=== PATIENT | female | born 1935 | race Caucasian/White ===

== ENCOUNTER 2017-11-02 19:19 | Inpatient (IN) | payer MEDICARE, BC ==
[~2017-11-02] VITALS: Ht 172.7 cm; Wt 108.0 kg
[~2017-11-02 19:19] MED LIST: CITA-48 PO; DONE5TAB14 PO; GABA100C4 PO; LEVO75TA3 PO; NEXI20CA PO; NIFE1TAB86 PO; ONDA4; VITA400C28 PO
[2017-11-02 20:04] VITALS: BP 179/79; PULSE 62; RESP 17; TEMP 97.6; O2SAT 98
[2017-11-02] MEDS ORDERED: SODIUM CHLORIDE 0.9% FLUSH 10 ML FLUSH IV FLUSH PRN ×2 (20:15→22:15)
[2017-11-02 20:42] LABS: AUTOMATED NEUTROPHIL # 5.5 TH/MM3 (1.8-7.7); BASOPHIL % 0.2 % (0.0-2.0); EOSINOPHIL % 0.3 % (0.0-4.0); HEMATOCRIT 50.7 % (35.0-46.0); HEMO FLAGS DIFF FINAL; LYMPH % 12.2 % (9.0-44.0); LYMPHOCYTE # 0.8 TH/MM3 (1.0-4.8); MEAN CELL VOLUME 95.2 FL (80.0-100.0); MEAN CORPUSCULAR HEMOGLOBIN 32.3 PG (27.0-34.0); MEAN CORPUSCULAR HGB CONC 33.9 % (32.0-36.0); MONO % 6.8 % (0.0-8.0); NEUT % 80.5 % (16.0-70.0); PLATELET COUNT 198 TH/MM3 (150-450); RED BLOOD COUNT 5.33 MIL/MM3 (4.00-5.30); RED CELL DISTRIBUTION WIDTH 13.4 % (11.6-17.2); WHITE BLOOD COUNT 6.9 TH/MM3 (4.0-11.0)
[2017-11-02 20:43] VITALS: BP 149/73; PULSE 55; RESP 16; O2SAT 97
--- NOTE | 2017-11-02 20:43 | RADRPT ---
EXAM DATE/TIME: 11/02/2017 20:30 [facility] COMPARISON: CT BRAIN W/O CONTRAST, April 08, 2015, 16:25. INDICATIONS : Altered mental status. RADIATION DOSE: 35.52 CTDIvol (mGy) MEDICAL HISTORY : Hypertension. Diverticulitis. Hernia, hiatal. SURGICAL HISTORY : Hysterectomy. ENCOUNTER: Initial ACUITY: 1 day PAIN SCALE: 0/10 LOCATION: cranial TECHNIQUE: Multiple contiguous axial images were obtained of the head. Using automated exposure control and adj ustment of the mA and/or kV according to patient size, radiation dose was kept as low as reasonably a chievable to obtain optimal diagnostic quality images. DICOM format image data is available electro [facility] for review and comparison. FINDINGS: CEREBRUM: The ventricles are normal for age. No evidence of midline shift, mass lesion, hemorrhage or acute in farction. No extra-axial fluid collections are seen. Moderate to severe periventricular and subcorti kristy white matter small vessel ischemic changes are noted bilaterally. POSTERIOR FOSSA: The cerebellum and brainstem are intact. The 4th ventricle is midline. The cerebellopontine angle i s unremarkable. EXTRACRANIAL: The visualized portion of the orbits is intact. SKULL: The calvaria is intact. No evidence of skull fracture. CONCLUSION: 1. Moderate to severe periventricular and subcortical white matter small vessel ischemic changes bila terally. 2. No acute infarct, acute hemorrhage, mass effect or extra-axial fluid collections. Jonathan Castrejon MD on November 02, 2017 at 20:39 Board Certified Radiologist. This report was verified electronically.
[2017-11-02 20:47] LABS: BLOOD, URINE NEG (NEG); GLUCOSE,URINE NEG (NEG); HYALINE CAST, URINE 6 /lpf (RARE); KETONE, URINE NEG (NEG); NITRITE,URINE NEG (NEG); PH, URINE 6.5 (5.0-8.5); SQUAMOUS EPITHELIAL CELL URINE <1 /hpf (0-5); URINE COLOR LIGHT-YELLOW (YELLW/STRAW)
[2017-11-02 20:48] LABS: COMMENT (UR) CATH-CULT NOT IND; CULTURE IF INDICATED CATH CULTURE NOT IND
[2017-11-02 20:56] LABS: APTT (PATIENT) 26.1 SEC (24.3-30.1); INTERNATIONAL NORMALIZED RATIO 1.1 RATIO; PROTHROMBIN TIME - PATIENT 10.7 SEC (9.8-11.6)
--- NOTE | 2017-11-02 20:56 | PD ---
HPI Chief Complaint: Altered Mental Status Time Seen by Provider: 20:13 Travel History International Travel<30 days: No Contact w/Intl Traveler<30days: No Traveled to known affect area: No History of Present Illness HPI Patient is an 81-year-old female brought into the emergency department evaluation of altered mental status. Per EMS report patient's son went to her house today and she answered the door naked. He felt as if she was acting abnormally. She has not been physically seen by anyone in several days. He told EMS that he spoke with her on the phone 2 days ago and she sounded fine. Patient has no complaints today. She denies any recent falls, Injury, dysuria, chest pain, abdominal pain, shortness of breath. She has a history of hypertension, depression, memory loss and hypothyroidism. Son told EMS that he puts her medications in a pillbox but she often doesn't take them correctly. PFSH Past Medical History Anxiety: Yes Depression: Yes Cancer: No Dementia: Yes Diverticulitis: Yes Gastrointestinal Disorders: Yes (DIVERTICULITIS, ACID REFLUX) GERD: Yes Hiatal Hernia: Yes Hypertension: Yes Thyroid Disease: Yes ?: Not : 2 Para: 2 Past Surgical History Body Medical Devices: N/A Gynecologic Surgery: Yes (TOTAL VAGINAL HYSTERECTOMY) Hysterectomy: Yes Oral Surgery: Yes (TONSILLECTOMY) Tonsillectomy: Yes Other Surgery: Yes Social History Alcohol Use: Yes (ONCE A MONTH) Tobacco Use: No Substance Use: No Allergies-Medications (Allergen,Severity, Reaction): Coded Allergies: No Known Allergies (Verified , 04/08/15) Reported Meds & Prescriptions Reported Meds & Active Scripts Active Review of Systems ROS Limitations: Poor Historian Except as stated in HPI: all other systems reviewed are Neg Cardiovascular: No: Chest Pain or Discomfort Respiratory: No: Shortness of Breath Gastrointestinal: No: Abdominal Pain Neurologic: Positive: Other (memory loss), No: Focal Abnormalities, Change in Mentation, Slurred Speech Physical Exam Narrative GENERAL: Overweight, well-developed, alert elderly female. Resting comfortably in no acute distress. SKIN: Warm and dry. HEAD: Atraumatic. Normocephalic. EYES: Pupils equal and round. No scleral icterus. No injection or drainage. ENT: No nasal bleeding or discharge. Mucous membranes pink and moist. NECK: Trachea midline. No JVD. CARDIOVASCULAR: Regular rate and rhythm. 2/6 stop murmur. RESPIRATORY: No accessory muscle use. Clear to auscultation. Breath sounds equal bilaterally. GASTROINTESTINAL: Abdomen soft, non-tender, nondistended. Hepatic and splenic margins not palpable. MUSCULOSKELETAL: Extremities without clubbing, cyanosis, or edema. No obvious deformities. NEUROLOGICAL: Awake and alert. No obvious cranial nerve deficits. Motor grossly within normal limits. Five out of 5 muscle strength in the arms and legs. Normal speech. PSYCHIATRIC: Appropriate mood and affect; insight and judgment normal. Data Data Last Documented VS Vital Signs Date Time Temp Pulse Resp B/P (MAP) Pulse Ox O2 Delivery O2 Flow Rate FiO2 11/02/17 20:43 55 16 149/73 (98) 97 Room Air 11/02/17 20:04 97.6 Orders Orders Electrocardiogram (11/02/17 20:11) Complete Blood Count With Diff (11/02/17 20:11) Comprehensive Metabolic Panel (11/02/17 20:11) Creatine Kinase (Cpk) (11/02/17 20:11) Prothrombin Time / Inr (Pt) (11/02/17 20:11) Act Partial Throm Time (Ptt) (11/02/17 20:11) Thyroid Stimulating Hormone (11/02/17 20:11) Urinalysis - C+S If Indicated (11/02/17 20:11) Chest, Single Ap (11/02/17 20:11) Ct Brain W/O Iv Contrast(Rout) (11/02/17 20:11) Blood Glucose (11/02/17 20:11) Ecg Monitoring (11/02/17 20:11) Iv Access Insert/Monitor (11/02/17 20:11) Cath For Specimen (11/02/17 20:11) Oximetry (11/02/17 20:11) Sodium Chloride 0.9% Flush (Ns Flush) (11/02/17 20:15) Drug Screen, Random Urine (11/02/17 20:11) Alcohol (Ethanol) (11/02/17 20:11) Tylenol (Acetaminophen) (11/02/17 20:11) CKMB (11/02/17 20:15) CKMB% (11/02/17 20:15) Troponin I (11/02/17 21:47) Drug Screen, Random Urine (11/02/17 21:47) Salicylates (Aspirin) (11/02/17 21:47) Place In Observation (11/02/17 ) Vital Signs (Adult) Q2HX12,Q4H (11/02/17 22:12) Nih Stroke Scale - Nihss .Daily (11/02/17 22:12) Neuro Checks Q2HX12,Q4H (11/02/17 22:12) Notify Dr: Other (11/02/17 22:12) Remove Urinary Catheter .ONCE (11/02/17 22:12) Ot Request For Service (11/02/17 22:12) Pt Request For Service (11/02/17 22:12) Speech Therapy Consult-Eval/Tx (11/02/17 22:12) Case Management Consult (11/02/17 ) Activity Oob Ad Halima (11/02/17 22:12) Scd Bilateral/Knee High BAO.QSHIFT (11/02/17 22:12) Diet Npo (11/03/17 Breakfast) Hemoglobin (Hgb) A1c (11/02/17 22:12) Lipid Profile (11/03/17 06:00) Us Carotid Arteries Comp Bilat (11/02/17 ) Mra Brain W/O Contrast (Cow) (11/02/17 ) Mri Brain W/O Contrast (11/02/17 ) Echo 2d Comp With Doppler (11/02/17 ) ^ Hold Medication (11/02/17 22:12) Consult Neurology (11/02/17 ) Sodium Chloride 0.9% Flush (Ns Flush) (11/03/17 09:00) Sodium Chloride 0.9% Flush (Ns Flush) (11/02/17 22:15) Shine Worker / Telemetry BAO.Q8H (11/02/17 22:12) Consult Stroke Navigator (11/02/17 ) Eeg Study (11/02/17 ) Admit Order (Ed Use Only) (11/02/17 22:16) Labs Laboratory Tests Test 11/02/17 20:15 White Blood Count 6.9 TH/MM3 Red Blood Count 5.33 MIL/MM3 Hemoglobin 17.2 GM/DL Hematocrit 50.7 % Mean Corpuscular Volume 95.2 FL Mean Corpuscular Hemoglobin 32.3 PG Mean Corpuscular Hemoglobin Concent 33.9 % Red Cell Distribution Width 13.4 % Platelet Count 198 TH/MM3 Mean Platelet Volume 10.1 FL Neutrophils (%) (Auto) 80.5 % Lymphocytes (%) (Auto) 12.2 % Monocytes (%) (Auto) 6.8 % Eosinophils (%) (Auto) 0.3 % Basophils (%) (Auto) 0.2 % Neutrophils # (Auto) 5.5 TH/MM3 Lymphocytes # (Auto) 0.8 TH/MM3 Monocytes # (Auto) 0.5 TH/MM3 Eosinophils # (Auto) 0.0 TH/MM3 Basophils # (Auto) 0.0 TH/MM3 CBC Comment DIFF FINAL Differential Comment Prothrombin Time 10.7 SEC Prothromb Time International Ratio 1.1 RATIO Activated Partial Thromboplast Time 26.1 SEC Urine Color LIGHT-YELLOW Urine Turbidity CLEAR Urine pH 6.5 Urine Specific [place] 1.010 Urine Protein NEG mg/dL Urine Glucose (UA) NEG mg/dL Urine Ketones NEG mg/dL Urine Occult Blood NEG Urine Nitrite NEG Urine Bilirubin NEG Urine Urobilinogen LESS THAN 2.0 MG/DL Urine Leukocyte Esterase NEG Urine RBC 1 /hpf Urine WBC 1 /hpf Urine Squamous Epithelial Cells <1 /hpf Urine Amorphous Sediment RARE Urine Hyaline Casts 6 /lpf Microscopic Urinalysis Comment CATH-CULT NOT IND Blood Urea Nitrogen 14 MG/DL Creatinine 0.99 MG/DL Random Glucose 118 MG/DL Total Protein 7.0 GM/DL Albumin 3.6 GM/DL Calcium Level 7.9 MG/DL Alkaline Phosphatase 107 U/L Aspartate Amino Transf (AST/SGOT) 22 U/L Alanine Aminotransferase (ALT/SGPT) 22 U/L Total Bilirubin 0.8 MG/DL Sodium Level 137 MEQ/L Potassium Level 4.2 MEQ/L Chloride Level 103 MEQ/L Carbon Dioxide Level 23.6 MEQ/L Anion Gap 10 MEQ/L Estimat Glomerular Filtration Rate 54 ML/MIN Total Creatine Kinase 195 U/L Creatine Kinase MB 5.3 NG/ML Creatine Kinase MB % 2.7 % Thyroid Stimulating Hormone 3rd Gen 5.220 uIU/ML Urine Opiates Screen NEG Acetaminophen Level LESS THAN 2.0 MCG/ML Urine Barbiturates Screen NEG Urine Amphetamines Screen NEG Urine Benzodiazepines Screen NEG Urine Cocaine Screen NEG Urine Cannabinoids Screen NEG Ethyl Alcohol Level LESS THAN 3 MG/DL MDM Medical Decision Making Medical Screen Exam Complete: Yes Emergency Medical Condition: Yes Interpretation(s) Vital Signs Date Time Temp Pulse Resp B/P (MAP) Pulse Ox O2 Delivery O2 Flow Rate FiO2 11/02/17 20:43 55 16 149/73 (98) 97 Room Air 11/02/17 20:04 97.6 62 17 179/79 (112) 98 Differential Diagnosis CVA versus TIA versus UTI versus metabolic abnormality versus dementia versus other Narrative Course Patient is a 81-year-old female that presented to emergency department for evaluation of altered mental status. Initially EMS reported that she answered the door naked when her son arrived and he called 911 because of that behavior. Son is currently at bedside and stated that he was in the kitchen at her home , she walked out of her bedroom stated in the doorway and had a 20-30 minute episode of expressive aphasia and just appearing "out of it". And believes that she is not taking her medications appropriately. He states that at baseline she has some memory loss but is able to hold a conversation. CBC with no acute findings Chemistry with a calcium of 7.9, total CK at 195, CK-MB at 5.3 consistent with prior results. Troponin is still pending TSH is 5.2 Urinalysis is unremarkable Urine drug screen is pending Acetaminophen and alcohol level are unremarkable Chest x-ray which started by the radiologist shows bibasilar streakiness consistent with atelectasis and/or scarring. CT scan of the brain shows moderate to severe periventricular and subcortical white matter small vessel ischemic changes bilaterally. No acute infarct acute hemorrhage, mass effect or extra-axial fluid collections. HEPAS paged for admission due to what appears to be TIA symptoms. Discussed findings with Patient. Patient Is Agreeable to Stay. Diagnosis Primary Impression: TIA (transient ischemic attack) Qualified Codes: G45.9 - Transient cerebral ischemic attack, unspecified Additional Impressions: TSH elevation Noncompliance w/medication treatment due to intermit use of medication Bradycardia Admitting Information Admitting Physician Requests: Admit Condition: Stable Yuly Bhakta CASE ASSISTANT Nov 02, 2017 20:56
[2017-11-02 21:12] LABS: ANION GAP 10 MEQ/L (5-15)
[2017-11-02 21:24] LABS: ALKALINE PHOSPHATASE 107 U/L (45-117); ALT (GPT) 22 U/L (10-53); AST (GOT) 22 U/L (15-37); BICARBONATE 23.6 MEQ/L (21.0-32.0); BLOOD UREA NITROGEN 14 MG/DL (7-18); CHLORIDE 103 MEQ/L (98-107); CREATINE KINASE 195 U/L (26-192); GLOMERULAR FILTRATION RATE 54 ML/MIN (>89); POTASSIUM 4.2 MEQ/L (3.5-5.1); SODIUM (NA) 137 MEQ/L (136-145); TOTAL BILIRUBIN ADULT 0.8 MG/DL (0.2-1.0)
--- NOTE | 2017-11-02 21:24 | RADRPT ---
EXAM DATE/TIME: 11/02/2017 21:09 [facility] COMPARISON: CHEST SINGLE AP, April 18, 2016, 23:03. INDICATIONS : Altered mental status. MEDICAL HISTORY : Hypertension. Diverticulitis. Hernia, hiatal. SURGICAL HISTORY : Hysterectomy. ENCOUNTER: Initial ACUITY: 1 day PAIN SCORE: Non-responsive. LOCATION: Bilateral chest FINDINGS: Bibasilar streakiness is noted consistent with atelectasis and/or scarring. The heart is stable. The pulmonary vascular pattern is normal. No acute focal alveolar consolidation is noted. CONCLUSION: Bibasilar streakiness consistent with atelectasis and/or scarring. Jonathan Castrejon MD on November 02, 2017 at 21:21 Board Certified Radiologist. This report was verified electronically.
[2017-11-02 21:30] LABS: ACETAMINOPHEN LESS THAN 2.0 MCG/ML (10.0-30.0); ALCOHOL LESS THAN 3 MG/DL (0-5)
[2017-11-02 21:43] LABS: CKMB 5.3 NG/ML (0.5-3.6)
[2017-11-02] MEDS ORDERED: VITA1000 PO (22:44)
[2017-11-02] MEDS ORDERED: DONE5TAB7 PO (22:44)
[2017-11-02] MEDS ORDERED: NIFE20 PO (22:44)
[2017-11-02] MEDS ORDERED: LEVO88TA2 PO (22:44)
[2017-11-02] MEDS ORDERED: CITA40TA4 PO (22:44)
[2017-11-02 23:38] VITALS: BP 208/100; PULSE 53; RESP 18; O2SAT 97
--- NOTE | 2017-11-02 23:50 | HHI.HP ---
HPI Service [facility] Primary Care Physician Unknown Admission Diagnosis TIA Diagnoses: Travel History International Travel<30 Days: No Contact w/Intl Traveler <30 Da: No Traveled to Known Affected Are: No History of Present Illness pt stated son thought she was unsteady and called 911 per er, pt had trouble speaking when son came son came for grocery shopping no dizzness denies unsteadiness during the day,but stated she was unsteady "only when it happened" no falls no syncope denies other symptoms apart from little nausea face felt hot- for couple of weeks- no fever usually walks on her own, no walker no longer driving lives by herself, cooks for herself, does her own laundry son visits once a week Review of Systems Except as stated in HPI: all other systems reviewed are Neg Past Family Social History Past Medical History htn neuropathy has not been going to docs for past 1 yr- used to go to Dr Pagan hypothyroidism- per notes and meds- pt does not remember no dm/cad/chf/afib/lung problems/ liver or kidney problems/ cva/seizure/thyroid issues/cancer Past Surgical History cyst from breast hysterectomy tonsilectomy Allergies: Coded Allergies: No Known Allergies (Verified , 04/08/15) Family History parents were when she was3, and does not know about father- but he did not young mother of metastatic cancer- does not know what primary site - maybe lungs - in her 60s Social History used to smoke, quit 20yrs ago social drinker no drugs lives by herself, no longer driving Physical Exam Vital Signs Vital Signs Date Time Temp Pulse Resp B/P (MAP) Pulse Ox O2 Delivery O2 Flow Rate FiO2 11/02/17 20:43 55 16 149/73 (98) 97 Room Air 11/02/17 20:04 97.6 62 17 179/79 (112) 98 Physical Exam GENERAL: This is a well-nourished, well-developed patient, in no apparent distress. SKIN: No rashes, ecchymoses or lesions. Cool and dry. HEAD: Atraumatic. Normocephalic. No temporal or scalp tenderness. EYES: No scleral icterus. No injection or drainage. ENT: Nose without bleeding, purulent drainage or septal hematoma. Airway patent. NECK: Trachea midline. No JVD CARDIOVASCULAR: Regular rate and rhythm without murmurs, gallops, or rubs. RESPIRATORY: Clear to auscultation. Breath sounds equal bilaterally. No wheezes , rales, or rhonchi. GASTROINTESTINAL: Abdomen soft, non-tender, nondistended. . No guarding. MUSCULOSKELETAL: Extremities without clubbing, cyanosis. bilateral LE 1+ pitting edema up to mid calf. No calf tenderness. NEUROLOGICAL: Awake and alert. Motor and sensory grossly within normal limits. Normal speech. Laboratory Laboratory Tests Test 11/02/17 20:15 White Blood Count 6.9 Red Blood Count 5.33 Hemoglobin 17.2 Hematocrit 50.7 Mean Corpuscular Volume 95.2 Mean Corpuscular Hemoglobin 32.3 Mean Corpuscular Hemoglobin Concent 33.9 Red Cell Distribution Width 13.4 Platelet Count 198 Mean Platelet Volume 10.1 Neutrophils (%) (Auto) 80.5 Lymphocytes (%) (Auto) 12.2 Monocytes (%) (Auto) 6.8 Eosinophils (%) (Auto) 0.3 Basophils (%) (Auto) 0.2 Neutrophils # (Auto) 5.5 Lymphocytes # (Auto) 0.8 Monocytes # (Auto) 0.5 Eosinophils # (Auto) 0.0 Basophils # (Auto) 0.0 CBC Comment DIFF FINAL Differential Comment Prothrombin Time 10.7 Prothromb Time International Ratio 1.1 Activated Partial Thromboplast Time 26.1 Urine Color LIGHT-YELLOW Urine Turbidity CLEAR Urine pH 6.5 Urine Specific [place] 1.010 Urine Protein NEG Urine Glucose (UA) NEG Urine Ketones NEG Urine Occult Blood NEG Urine Nitrite NEG Urine Bilirubin NEG Urine Urobilinogen LESS THAN 2.0 Urine Leukocyte Esterase NEG Urine RBC 1 Urine WBC 1 Urine Squamous Epithelial Cells <1 Urine Amorphous Sediment RARE Urine Hyaline Casts 6 Microscopic Urinalysis Comment CATH-CULT NOT IND Blood Urea Nitrogen 14 Creatinine 0.99 Random Glucose 118 Total Protein 7.0 Albumin 3.6 Calcium Level 7.9 Alkaline Phosphatase 107 Aspartate Amino Transf (AST/SGOT) 22 Alanine Aminotransferase (ALT/SGPT) 22 Total Bilirubin 0.8 Sodium Level 137 Potassium Level 4.2 Chloride Level 103 Carbon Dioxide Level 23.6 Anion Gap 10 Estimat Glomerular Filtration Rate 54 Total Creatine Kinase 195 Creatine Kinase MB 5.3 Creatine Kinase MB % 2.7 Troponin I 0.02 Thyroid Stimulating Hormone 3rd Gen 5.220 Salicylates Level LESS THAN 1.7 Urine Opiates Screen NEG Acetaminophen Level LESS THAN 2.0 Urine Barbiturates Screen NEG Urine Amphetamines Screen NEG Urine Benzodiazepines Screen NEG Urine Cocaine Screen NEG Urine Cannabinoids Screen NEG Ethyl Alcohol Level LESS THAN 3 Result Diagram: 11/02/17201411/02/172014 Imaging Last [address] 11/02/172010 Signed Impressions: Service Date/Time: Thursday, November 02, 2017 20:30 - CONCLUSION: 1. Moderate to severe periventricular and subcortical white matter small vessel ischemic changes bilaterally. 2. No acute infarct, acute hemorrhage, mass effect or extra-axial fluid collections. Jonathan Castrejon MD Chest X-Ray 11/02/172010 Signed Impressions: Service Date/Time: Thursday, November 02, 2017 21:09 - CONCLUSION: Bibasilar streakiness consistent with atelectasis and/or scarring. Jonathan Castrejon MD Caprini VTE Risk Assessment Caprini VTE Risk Assessment: Mod/High Risk (score >= 2) Caprini Risk Assessment Model Point Value = 1 Point Value = 2 Point Value = 3 Point Value = 5 Age 41-60 Minor surgery BMI > 25 kg/m2 Swollen legs Varicose veins or History of unexplained or recurrent spontaneous Oral contraceptives or hormone replacement Sepsis (< 1 month) Serious lung disease, including pneumonia (< 1 month) Abnormal pulmonary function Acute myocardial infarction Congestive heart failure (< 1 month) History of inflammatory bowel disease Medical patient at bed rest Age 61-74 Arthroscopic surgery Major open surgery (> 45 min) Laparoscopic surgery (> 45 min) Malignancy Confined to bed (> 72 hours) Immobilizing plaster cast Central venous access Age >= 75 History of VTE Family history of VTE Factor V Leiden Prothrombin [id number] Lupus anticoagulant Anticardiolipin antibodies Elevated serum homocysteine Heparin-induced thrombocytopenia Other congenital or acquired thrombophilia Stroke (< 1 month) Elective arthroplasty Hip, pelvis, or leg fracture Acute spinal cord injury (< 1 month) Prophylaxis Regimen Total Risk Factor Score Risk Level Prophylaxis Regimen 0-1 Low Early ambulation 2 Moderate Order ONE of the following: *Sequential Compression Device (SCD) *Heparin 5000 units SQ BID 3-4 Higher Order ONE of the following medications: *Heparin 5000 units SQ TID *Enoxaparin/Lovenox 40 mg SQ daily (WT < 150 kg, CrCl > 30 mL/min) *Enoxaparin/Lovenox 30 mg SQ daily (WT < 150 kg, CrCl > 10-29 mL/min) *Enoxaparin/Lovenox 30 mg SQ BID (WT < 150 kg, CrCl > 30 mL/min) AND/OR *Sequential Compression Device (SCD) 5 or more Highest Order ONE of the following medications: *Heparin 5000 units SQ TID (Preferred with Epidurals) *Enoxaparin/Lovenox 40 mg SQ daily (WT < 150 kg, CrCl > 30 mL/min) *Enoxaparin/Lovenox 30 mg SQ daily (WT < 150 kg, CrCl > 10-29 mL/min) *Enoxaparin/Lovenox 30 mg SQ BID (WT < 150 kg, CrCl > 30 mL/min) AND *Sequential Compression Device (SCD) Assessment and Plan Assessment and Plan Impression: TIA vascular dementia HTN- uncontrolled on admission- 210/100s medication non compliance elevated TSH Plan: neuro checks permissive htn vasotec 2.5 Juan Alas MD Nov 02, 2017 23:50
[2017-11-03] VITALS (11 sets, daily range): BP systolic 134–200; BP diastolic 68–97; PULSE 59–84; RESP 16–20; TEMP 97.7–98.1; O2SAT 93–96
[2017-11-03] MEDS ORDERED: ENALAPRILAT 2.5 MG/2 ML VIAL IV PUSH PRN
[2017-11-03] MEDS: LEVOTHYROXINE SODIUM 88 MCG TAB PO SCH (06:00)
[2017-11-03 06:07] LABS: HDL CHOLESTEROL 48.2 MG/DL (40.0-60.0); LDL CHOLESTEROL 89 MG/DL (0-99)
--- NOTE | 2017-11-03 09:52 | RADRPT ---
EXAM DATE/TIME: 11/03/2017 08:45 [facility] COMPARISON: US CAROTID ARTERIES, April 20, 2016, 9:55. INDICATIONS : Transient ischemic attack. MEDICAL HISTORY : Hypothyroidism. Diverticulitis. Hernia, hiatal. Bilateral cataracts. Neuropathy. Dementia. HTN. GERD. Arthritis. Depression. Anxiety. SURGICAL HISTORY : Tonsillectomy. Total hysterectomy. ENCOUNTER: Initial ACUITY: 1 day PAIN SCORE: 0/10 LOCATION: Bilateral neck PEAK SYSTOLIC VELOCITIES (cm/sec): ICA/CCA RATIO: Right: 0.9 Left: 0.8 ICA: Right: 81 Left: 72 CCA: Right: 95 Left: 94 ECA: Right: 77 Left: 134 VERTEBRAL: Right: 65 antegrade Left: 46 antegrade Elevated flow velocities and ICA/CCA ratios have been found to correlate with increased degrees of vessel stenosis, calculated as percentage of diameter relative to a normal segment of distal ICA/CCA FINDINGS: RIGHT CAROTID: There is no evidence for a hemodynamically significant carotid stenosis. Minimal intimal hyperplasia is present with scattered calcific plaque. LEFT CAROTID: There is no evidence for a hemodynamically significant carotid stenosis. Minimal intimal hyperplasia is present with scattered calcific plaque. VERTEBRAL ARTERIES: Flow is antegrade in both vertebral arteries. MISCELLANEOUS: There are no ancillary masses or adenopathy. CONCLUSION: Negative examination for a hemodynamically significant carotid stenosis. . Julian Hawkins MD FACR on November 03, 2017 at 9:49 Board Certified Radiologist. This report was verified electronically.
[2017-11-03] MEDS ORDERED: DEXTROSE 50% IN WATER 50 ML VIAL(D50) IV PUSH PRN (11:30)
[2017-11-03] MEDS ORDERED: ATORVASTATIN 10 MG TAB PO ONE (11:30)
[2017-11-03] MEDS ORDERED: GLUCAGON 1 MG/ML VIAL OTHER PRN (11:30)
[2017-11-03] MEDS ORDERED: ASPIRIN EC 81 MG TABEC PO ONE (11:30)
[2017-11-03] MEDS: INSULIN ASPART SUPPLEMENTAL SCALE SQ SCH ×3 (12:00→20:47)
[2017-11-03 12:33] LABS: MAGNESIUM 1.9 MG/DL (1.5-2.5)
[2017-11-03 12:36] LABS: FREE T4 1.02 NG/DL (0.76-1.46)
--- NOTE | 2017-11-03 12:44 | MG ---
cc: KESHAWN TEJADA MD Lab No: Date: 11/03/2017 Age: 78 Sex: F Race: ___ DATE OF [address] Alas MEDICAL HISTORY 1. Altered mental status 2. History of hypertension 3. Depression 4. Memory loss 5. Hypothyroidism 6. Anxiety 7. Gastroesophageal reflux disease 8. Diverticulitis 9. Alcohol use 10. Arthritis 11. Dementia MEDICATIONS Vasotec DESCRIPTION The background activity is 8-9 Hz alpha located posteriorly superimposed by beta activity. Hyperventilation was omitted. Photic stimulation did not elicit a driving response. During the recording, there is muscle artifact. There were no electrographic seizures or epileptiform discharges noted. INTERPRETATION This is a normal awake EEG. Beta activity is a nonspecific finding that may be related to medication adverse effect like benzos or barbiturates. There are no electrographic seizures or epileptiform discharges. Clinical correlation is recommended. MD STEFAN Patrick/VER[place] /12:16 PM /12:29 PM MTDNhung
--- NOTE | 2017-11-03 12:53 | HHI.PR ---
Subjective Remarks pt stated son thought she was unsteady and called 911 per er, pt had trouble speaking when son came son came for grocery shopping no dizzness denies unsteadiness during the day,but stated she was unsteady "only when it happened" no falls no syncope denies other symptoms apart from little nausea face felt hot- for couple of weeks- no fever usually walks on her own, no walker no longer driving lives by herself, cooks for herself, does her own laundry son visits once a week 12-5 SEEN EARLIER, NO COMPLAINTS NOTED TO HAVE VASOVAGAL VS SYNCOPAL EPISODE IN MRI- RESOLVED AFTER FEW SECONDS WILL CONSULT CARDIOLOGY AND GET ECHO, CAROTIDS, MRI PT AND OT HAS HISTORY OF NONCOMPLIANCE Consult neurology Objective Vitals Vital Signs Date Time Temp Pulse Resp B/P (MAP) Pulse Ox O2 Delivery O2 Flow Rate FiO2 11/03/17 08:19 97.7 64 20 138/68 (91) 95 11/03/17 07:06 84 11/03/17 04:00 61 11/03/17 03:03 73 11/03/17 02:46 97.8 59 17 153/87 (109) 93 11/03/17 02:41 66 11/03/17 00:31 67 18 178/84 (115) 94 Room Air 11/03/17 00:28 64 16 196/96 (129) 95 Room Air 11/03/17 00:09 62 18 200/97 (131) 95 Room Air 11/02/17 23:38 53 18 208/100 (136) 97 Room Air 11/02/17 20:43 55 16 149/73 (98) 97 Room Air 11/02/17 20:04 97.6 62 17 179/79 (112) 98 Result Diagram: 11/02/17201411/02/172014 Other Results Laboratory Tests Test 11/02/17 20:15 11/03/17 04:39 White Blood Count 6.9 TH/MM3 Red Blood Count 5.33 MIL/MM3 Hemoglobin 17.2 GM/DL Hematocrit 50.7 % Mean Corpuscular Volume 95.2 FL Mean Corpuscular Hemoglobin 32.3 PG Mean Corpuscular Hemoglobin Concent 33.9 % Red Cell Distribution Width 13.4 % Platelet Count 198 TH/MM3 Mean Platelet Volume 10.1 FL Neutrophils (%) (Auto) 80.5 % Lymphocytes (%) (Auto) 12.2 % Monocytes (%) (Auto) 6.8 % Eosinophils (%) (Auto) 0.3 % Basophils (%) (Auto) 0.2 % Neutrophils # (Auto) 5.5 TH/MM3 Lymphocytes # (Auto) 0.8 TH/MM3 Monocytes # (Auto) 0.5 TH/MM3 Eosinophils # (Auto) 0.0 TH/MM3 Basophils # (Auto) 0.0 TH/MM3 CBC Comment DIFF FINAL Differential Comment Prothrombin Time 10.7 SEC Prothromb Time International Ratio 1.1 RATIO Activated Partial Thromboplast Time 26.1 SEC Urine Color LIGHT-YELLOW Urine Turbidity CLEAR Urine pH 6.5 Urine Specific Gerald 1.010 Urine Protein NEG mg/dL Urine Glucose (UA) NEG mg/dL Urine Ketones NEG mg/dL Urine Occult Blood NEG Urine Nitrite NEG Urine Bilirubin NEG Urine Urobilinogen LESS THAN 2.0 MG/DL Urine Leukocyte Esterase NEG Urine RBC 1 /hpf Urine WBC 1 /hpf Urine Squamous Epithelial Cells <1 /hpf Urine Amorphous Sediment RARE Urine Hyaline Casts 6 /lpf Microscopic Urinalysis Comment CATH-CULT NOT IND Blood Urea Nitrogen 14 MG/DL Creatinine 0.99 MG/DL Random Glucose 118 MG/DL Total Protein 7.0 GM/DL Albumin 3.6 GM/DL Calcium Level 7.9 MG/DL Alkaline Phosphatase 107 U/L Aspartate Amino Transf (AST/SGOT) 22 U/L Alanine Aminotransferase (ALT/SGPT) 22 U/L Total Bilirubin 0.8 MG/DL Sodium Level 137 MEQ/L Potassium Level 4.2 MEQ/L Chloride Level 103 MEQ/L Carbon Dioxide Level 23.6 MEQ/L Anion Gap 10 MEQ/L Estimat Glomerular Filtration Rate 54 ML/MIN Total Creatine Kinase 195 U/L Creatine Kinase MB 5.3 NG/ML Creatine Kinase MB % 2.7 % Troponin I 0.02 NG/ML Thyroid Stimulating Hormone 3rd Gen 5.220 uIU/ML Salicylates Level LESS THAN 1.7 MG/DL Urine Opiates Screen NEG Acetaminophen Level LESS THAN 2.0 MCG/ML Urine Barbiturates Screen NEG Urine Amphetamines Screen NEG Urine Benzodiazepines Screen NEG Urine Cocaine Screen NEG Urine Cannabinoids Screen NEG Ethyl Alcohol Level LESS THAN 3 MG/DL Phosphorus Level 3.2 MG/DL Magnesium Level 1.9 MG/DL Triglycerides Level 87 MG/DL Cholesterol Level 155 MG/DL LDL Cholesterol 89 MG/DL HDL Cholesterol 48.2 MG/DL Cholesterol/HDL Ratio 3.21 RATIO Free Thyroxine 1.02 NG/DL Imaging Last Impressions Carotid Artery Ultrasound 11/03/17 Signed Impressions: Service Date/Time: Friday, November 03, 2017 08:45 - CONCLUSION: Negative examination for a hemodynamically significant carotid stenosis. . Julian Hawkins MD FACR Head CT 11/02/172010 Signed Impressions: Service Date/Time: Thursday, November 02, 2017 20:30 - CONCLUSION: 1. Moderate to severe periventricular and subcortical white matter small vessel ischemic changes bilaterally. 2. No acute infarct, acute hemorrhage, mass effect or extra-axial fluid collections. Jonathan Castrejon MD Chest X-Ray 11/02/172010 Signed Impressions: Service Date/Time: Thursday, November 02, 2017 21:09 - CONCLUSION: Bibasilar streakiness consistent with atelectasis and/or scarring. Jonathan Castrejon MD Objective Remarks GENERAL: Alert oriented talkative and cooperative no current complaints SKIN: Warm and dry. HEAD: Atraumatic. Normocephalic. EYES: Pupils equal and round. No scleral icterus. No injection or drainage. Extraocular muscles intact ENT: No nasal bleeding or discharge. Mucous membranes pink and moist. Tongue is midline NECK: Trachea midline. No JVD. Supple CARDIOVASCULAR: Regular rate and rhythm. S1 and S2 no S3 or S4 RESPIRATORY: No accessory muscle use. Clear to auscultation. Breath sounds equal bilaterally. GASTROINTESTINAL: Abdomen soft, non-tender, nondistended. Hepatic and splenic margins not palpable. Obese MUSCULOSKELETAL: Extremities without clubbing, cyanosis, No obvious deformities. Bilateral lower extremity edema DRY skin bilateral lower extremities NEUROLOGICAL: Awake and alert. No obvious cranial nerve deficits. Motor grossly within normal limits. Five out of 5 muscle strength in the arms and legs. Normal speech. PSYCHIATRIC: Appropriate mood and affect; insight and judgment normal. Medications and IVs Current Medications Sodium Chloride (NS Flush) 2 ml UNSCH PRN IV FLUSH FLUSH AFTER USING IV ACCESS ; Start 11/02/17 at 20:15; Stop 11/02/17 at 22:18; Status DC Sodium Chloride (NS Flush) 2 ml BID IV FLUSH ; Start 11/03/17 at 09:00 Sodium Chloride (NS Flush) 2 ml UNSCH PRN IV FLUSH FLUSH AFTER USING IV ACCESS ; Start 11/02/17 at 22:15 Enalaprilat (Vasotec Inj) 2.5 mg Q6H PRN IV PUSH bp>200/100 Last administered on 11/03/17t 00:10; Start 11/03/17 at 00:00 Citalopram Hydrobromide (CeleXA) 40 mg DAILY PO ; Start 11/03/17 at 09:00 Donepezil HCl (Aricept) 5 mg HS PO ; Start 11/03/17 at 21:00 Levothyroxine Sodium (Synthroid) 88 mcg DAILY@0600 PO ; Start 11/03/17 at 06:00 Pneumococcal Polyvalent Vaccine (Pneumovax-23 Inj) 25 mcg ONCE ONCE IM ; Start 11/04/17 at 10:00; Stop 11/04/17 at 10:01 Influenza Virus Vaccine (Flu (Quadrivalent) Vaccine Inj) 0.5 ml ONCE ONCE IM ; Start 11/04/17 at 10:00; Stop 11/04/17 at 10:01 Dextrose (D50w (Vial) Inj) 50 ml UNSCH PRN IV PUSH HYPOGLYCEMIA-SEE COMMENTS; Start 11/03/17 at 11:30 Glucagon (Glucagon Inj) 1 mg UNSCH PRN OTHER HYPOGLYCEMIA-SEE COMMENTS; Start 11/03/17 at 11:30 Insulin Aspart (NovoLOG SUPPLEMENTAL SCALE) 1 ACHS SLIDING SCALE SQ ; Start at 12:00 Nifedipine (Procardia) 60 mg BID PO ; Start 11/03/17 at 21:00 Atorvastatin Calcium (Lipitor) 10 mg ONCE ONCE PO ; Start 11/03/17 at 11:30; Stop 11/03/17 at 11:31; Status DC Atorvastatin Calcium (Lipitor) 10 mg DAILY PO ; Start 11/04/17 at 09:00 Aspirin (Ecotrin Ec) 81 mg ONCE ONCE PO ; Start 11/03/17 at 11:30; Stop at 11:31; Status DC Aspirin (Ecotrin Ec) 81 mg DAILY PO ; Start 11/04/17 at 09:00 Urinary Catheter: No Vascular Central Line Catheter: No A/P Problem List: (1) Noncompliance w/medication treatment due to intermit use of medication ICD Code: Z91.14 - Patient's other noncompliance with medication regimen Status: Acute (2) Bradycardia ICD Code: R00.1 - Bradycardia, unspecified Status: Acute (3) TIA (transient ischemic attack) ICD Code: G45.9 - Transient cerebral ischemic attack, unspecified Status: Acute (4) Syncope ICD Code: R55 - Syncope and collapse Status: Acute (5) HTN (hypertension) ICD Code: I10 - Essential (primary) hypertension Status: Acute Assessment and Plan Impression: TIA in 2 new aspirin home medications vascular dementia HTN- uncontrolled on admission- 210/100s medication non compliance elevated TSH VASOvagal versus syncopal episode neurology has already been consult and will consult cardiology Plan: neuro checks permissive htn vasotec 2.5 Echo Carotids Neurology consult Cardiology consult due to vasovagal versus syncopal episode Discharge Planning Pending neurology and cardiology clearance Problem Qualifiers (1) TIA (transient ischemic attack): Qualified Codes: G45.9 - Transient cerebral ischemic attack, unspecified Julian Mclaughlin DO Nov 03, 2017 12:53
[2017-11-03] MEDS: CITALOPRAM HYDROBROMIDE 40 MG TAB PO SCH (13:41)
[2017-11-03] MEDS: SODIUM CHLORIDE 0.9% FLUSH 10 ML FLUSH IV FLUSH SCH ×2 (13:43→22:17)
--- NOTE | 2017-11-03 13:55 | RADRPT ---
EXAM DATE/TIME: 11/03/2017 12:48 [facility] COMPARISON: No previous studies available for comparison. INDICATIONS : Aphasia. MEDICAL HISTORY : Hypertension. SURGICAL HISTORY : Hysterectomy. Tonsillectomy. ENCOUNTER: Initial ACUITY: 2 day PAIN SCORE: 0/10 LOCATION: Head TECHNIQUE: Multiplanar, multisequence MRI of the brain was performed without contrast. FINDINGS: Moderate periventricular white matter changes are noted. There is mild atrophy. There is no restric yumiko diffusion. There is no parenchymal hemorrhage. Midline structures are intact. There no extra-a xial fluid collections appreciated. Posterior fossa is unremarkable CONCLUSION: Atrophy with marked periventricular white matter changes, negative for acute ischemic event. Julian Hawkins MD FACR on November 03, 2017 at 13:52 Board Certified Radiologist. This report was verified electronically.
--- NOTE | 2017-11-03 13:56 | RADRPT ---
EXAM DATE/TIME: 11/03/2017 12:48 [facility] COMPARISON: No previous studies available for comparison. INDICATIONS : Aphasia. MEDICAL HISTORY : Hypertension. SURGICAL HISTORY : Tonsillectomy. Hysterectomy. ENCOUNTER: Initial ACUITY: 1 day PAIN SCORE: 0/10 LOCATION: Head Please note a normal MRA of the brain does not entirely exclude the possibility of a small aneurysm, nor the possibility of distal intracranial vessel disease. TECHNIQUE: 3D time of flight MRA was performed. Source images, multiplanar STS MIP, and 3D volume MIP reconstru ctions were reviewed. FINDINGS: There is excellent visualization of the major intracranial arteries out to the second-order branch ve ssels. There is no evidence for aneurysm, vessel truncation or stenosis, and no evidence for vascula r malformation. CONCLUSION: Negative for major branch vessel occlusion or aneurysm. Julian Hawkins MD FACR on November 03, 2017 at 13:53 Board Certified Radiologist. This report was verified electronically.
--- NOTE | 2017-11-03 14:38 | EKG ---
Date Performed: 11/02/2017 Time Performed: 21:21:18 PTAGE: 81 years EKG: SINUS BRADYCARDIA WITH OCCASIONAL VENTRICULAR PREMATURE COMPLEXES POSSIBLE LEFT ATRIAL ENLA RGEMENT BORDERLINE ECG Compared to prior tracing no significant change PREVIOUS TRACING : 04/19/2016 15.02 DOCTOR: Landy Silva Interpretating Date/Time 11/03/2017 14:33:25
--- NOTE | 2017-11-03 15:31 | MB ---
cc: SHANI VILLALBA M.D. DATE OF CONSULTATION: 11/03/2017 REASON FOR CONSULTATION An 81-year-old woman seen in neurological consultation because of altered mentation. HISTORY OF PRESENT ILLNESS The patient was apparently found by her son confused. He came in as usual and she answered the door apparently naked. There was some history of unsteadiness and slurring. She lives alone and she does not drive. It appears that her son comes in every week and helps her with her groceries, etc. While having an MRI study she had some apparent bradycardia and may have blacked out very briefly. The MRI was reviewed. There is extensive microvascular disease. The MRA head was unremarkable as well as a carotid ultrasound. PAST MEDICAL HISTORY She has a history of neuropathy and hypertension and low thyroid. NEUROLOGICAL EXAMINATION On exam the patient was awake, alert, and she was actually oriented. She provided some history but unclear as to what happened to her situation and the reason for her coming to the hospital. Ocular movements and visual edwards were full. There is no facial weakness. She has good strength in all four limbs on the bedside exam and the reflexes were present but diminished throughout. Plantar responses were equivocal bilaterally. Other ancillary data reviewed. LABORATORY White count 6.9, hemoglobin 17.2, platelets 198. Basic chemistry normal except for glucose 118. CPK 195. LDL 89. Urinalysis negative. ASSESSMENT Acute encephalopathy, undetermined cause. Not typical TIA. No obvious metabolic issues to explain this. The patient is improved, perhaps very mildly disoriented or confused at this point. She is going to be observed. Her EEG was normal. PLAN/RECOMMENDATIONS I will follow the neurological course. Will check the B12 and some additional metabolic data. Thank you for asking us to assist in her care. I will follow her with you. MD MARICHUY Tucker/BT /2:10 PM /3:18 PM
--- NOTE | 2017-11-03 16:45 | ECHRPT ---
Indication: CVA/TIA CONCLUSIONS Technically difficult study. The left ventricular systolic function is normal with an estimated ejection fraction in the range of 55-60%. Trace mitral valve regurgitation. There is trace tricuspid valve regurgitation. There is a trivial pericardial effusion present. No hemodynamically significant echocardiographic features were observed (no pre-tamponade physiology). BP: 153 / 87 HR: 109 Rhythm: MEASUREMENTS (Male / Female) Normal Values Technical Quality:Technically difficult study 2D ECHO LV Diastolic Diameter PLAX 4.2 cm 4.2 - 5.9 / 3.9 - 5.3 cm LV Systolic Diameter PLAX 3.3 cm IVS Diastolic Thickness 1.3 cm 0.6 - 1.0 / 0.6 - 0.9 cm LVPW Diastolic Thickness 0.7 cm 0.6 - 1.0 / 0.6 - 0.9 cm LV Relative Wall Thickness 0.5 RV Internal Dim ED PLAX 1.8 cm LA Systolic Diameter LX 3.4 cm 3.0 - 4.0 / 2.7 - 3.8 cm DOPPLER Mitral E Point Velocity 96.3 cm/s Mitral A Point Velocity 93.3 cm/s Mitral E to A Ratio 1.0 TR Peak Velocity 140.0 cm/s TR Peak Gradient 7.8 mmHg FINDINGS LEFT VENTRICLE Normal left ventricular size. The left ventricular systolic function is normal with an estimated ejection fraction in the range of 55-60%. There is assymetric septal hypertrophy. RIGHT VENTRICLE Normal right ventricular size and systolic function. LEFT ATRIUM The left atrial size is normal. RIGHT ATRIUM The right atrial size is normal. ATRIAL SEPTUM Normal atrial septal thickness. AORTA The aortic root and proximal ascending aorta are normal in size on limited imaging. MITRAL VALVE Structurally normal mitral valve. No mitral valve stenosis. Trace mitral valve regurgitation. AORTIC VALVE Grossly normal aortic valve No aortic valve stenosis or regurgitation. TRICUSPID VALVE Structurally normal tricuspid valve. There is trace tricuspid valve regurgitation. No tricuspid valve stenosis. PULMONARY VALVE The pulmonary valve is not well visualized. VESSELS The inferior vena cava is normal in size. PERICARDIUM There is a trivial pericardial effusion present. No hemodynamically significant echocardiographic features were observed (no pre-tamponade physiology). Kyree James DO (Electronically Signed) Final Date:03 November 2017 16:44
[2017-11-03 17:04] LABS: HEMOGLOBIN A1b 1.9 %; HEMOGLOBIN Ao 84.9 %; HEMOGLOBIN LA1C 1.9 %; HEMOGLOBIN P3 3.8 %
--- NOTE | 2017-11-03 20:30 | MB ---
cc: KYREE GONZALEZ DO DATE OF CONSULTATION: 11/03/2017. REASON FOR CONSULTATION: Possible syncopal episode. HISTORY OF PRESENT ILLNESS: Eliz Kahn is a pleasant 81-year-old female who originally presented to the [facility] Emergency Room due to multiple neurological complaints. Apparently her son goes over to her house weekly to help her with groceries, and when her son got there she was unsteady and having trouble speaking for about 20 minutes. She had no falls or syncopal episodes at that time. She felt like she was somewhat nauseous but otherwise no chest pain or shortness of breath. Overall she is a difficult historian and does not remember much about the event. Apparently today she was undergoing an MRI and MRA and when they took her over to the holding area, the tech was getting ready and when he turned around, she started to slump over. He said that he saw that her head was kind of slumped over and started trying to talk to her but she would not answer. At this time, her eyes were open and staring down at the ground. He attempted to shake her and kind of woke her up and she finally came-to. At that time, he put a pulse oximeter on her finger and her pulse oximetry was around 88% and her heart rate was in the mid 60s. I was asked to see Ms. Kahn due to this episode which was concerning for possible vasovagal versus bradycardic-mediated syncope. Of note, the patient states that she sees Dr. Moore but she is unsure of the last time that she saw him. PAST MEDICAL HISTORY: 1. Hypertension. 2. Neuropathy. 3. Hypothyroidism. PAST SURGICAL HISTORY: 1. Cyst from breast removed. 2. Hysterectomy. 3. Tonsillectomy. ALLERGIES: NO KNOWN DRUG ALLERGIES. MEDICATIONS: 1. Donepezil 5 milligrams every night. 2. Nifedipine 60 milligrams twice a day. 3. Citalopram 40 milligrams a day. 4. Synthroid 88 micrograms daily. FAMILY HISTORY: Parents were when she was at a young age and she does not know much about her father. Her mother of metastatic cancer but does not know what the primary site was. SOCIAL HISTORY: The patient used to smoke but quit twenty years ago. She drinks socially. Denies drugs. Lives by herself with her son helping her. REVIEW OF SYSTEMS Fourteen systems were reviewed including osteopathic with pertinent positives and negatives as above; otherwise negative. PHYSICAL EXAMINATION: VITAL SIGNS: Temperature 98.1, heart rate 71, blood pressure 134/70, respirations 18, pulse ox 96% on room air. GENERAL: The patient appears well and in no acute distress, alert awake and oriented x3. HEAD, EYES, EARS, NOSE, THROAT: Extraocular muscles intact. Mucous membranes moist. NECK: The neck is supple. No JVD at 45 degrees. No carotid bruits heard bilaterally. Carotid upstroke is brisk in nature. HEART: Regular rate and rhythm. Positive first and second heart sounds with a 1/6 crescendo/decrescendo murmur to the right sternal border. LUNGS: Clear to auscultation bilaterally. No wheezes, rales or rhonchi. ABDOMEN: The abdomen is soft, nontender and nondistended. No organomegaly noted. EXTREMITIES: Trace edema bilaterally. NEUROLOGIC: No focal deficits. SKIN: Warm, dry and intact. OSTEOPATHIC: Osteopathically, mild lordosis, no kyphoscoliosis, or paraspinal tender points. LAB WORK: Hemoglobin 17.2, hematocrit 50.7, platelets 198,000. Potassium 4.2, BUN 14, creatinine 0.99. Troponin 0.02. ELECTROCARDIOGRAMS: Electrocardiogram (November 02, 2017 at 2121): Sinus bradycardia with rare PVC, possible left atrial enlargement, no acute S-T-T wave changes. IMPRESSIONS: 1. Possible neurological event with encephalopathy of unknown cause. 2. Mild bradycardia occasionally inflammatory. 3. Short run of PAC on telemetry. 4. History of hypertension. RECOMMENDATIONS: 1. Ms. Kahn presented originally with an encephalopathy episode from an unknown cause and will be further worked up from neurology. 2. I was asked to see her for possible event while waiting for her MRI, which does not sound cardiac in nature as she did not syncopize. Consideration should be made for a possible seizure versus further neurological events as apparently she was awake with her eyes open and a decreased pulse oximetry as well as a heart rate in the 60s. 3. A 2-D echocardiogram has been done and showed an ejection fraction of 55% to 60% with trace mitral and tricuspid regurgitation and a trivial pericardial effusion. 4. We will plan to watch her on telemetry and she did have some mild bradycardia with heart rates as low at 55 but no significant bradycardia or AV blocks to further explain her syncopal episode. She also had an asymptomatic 6-beat run of PAT. Upon discharge, she can follow up with Dr. Moore for further consideration of rhythm analysis to rule out further arrhythmias. 5. Further recommendations will be made based on the hospital course. Thank you for allowing me to see Eliz Kahn. If there are any questions, please do not hesitate to call. Kyree Gonzalez DO VGP/JCC /7:48 PM /8:08 PM
[2017-11-03] MEDS: DONEPEZIL HCL 5 MG TAB PO SCH (22:17)
[2017-11-03] MEDS: NIFEdipine 20 MG CAP PO SCH (22:18)
[2017-11-04] VITALS (8 sets, daily range): BP systolic 117–188; BP diastolic 59–95; PULSE 57–75; RESP 17–18; TEMP 97.5–98.3; O2SAT 92–95
[2017-11-04] MEDS: LEVOTHYROXINE SODIUM 88 MCG TAB PO SCH (04:12)
[2017-11-04 05:17] LABS: AUTOMATED NEUTROPHIL # 5.7 TH/MM3 (1.8-7.7); BASOPHIL % 0.4 % (0.0-2.0); EOSINOPHIL % 0.4 % (0.0-4.0); HEMATOCRIT 49.2 % (35.0-46.0); HEMO FLAGS DIFF FINAL; LYMPH % 20.4 % (9.0-44.0); LYMPHOCYTE # 1.7 TH/MM3 (1.0-4.8); MEAN CORPUSCULAR HEMOGLOBIN 32.3 PG (27.0-34.0); MONO % 8.8 % (0.0-8.0); PLATELET COUNT 194 TH/MM3 (150-450); RED BLOOD COUNT 5.18 MIL/MM3 (4.00-5.30); RED CELL DISTRIBUTION WIDTH 13.2 % (11.6-17.2); WHITE BLOOD COUNT 8.1 TH/MM3 (4.0-11.0)
[2017-11-04 05:47] LABS: ALT (GPT) 23 U/L (10-53); ANION GAP 7 MEQ/L (5-15); AST (GOT) 22 U/L (15-37); BICARBONATE 24.7 MEQ/L (21.0-32.0); BLOOD UREA NITROGEN 15 MG/DL (7-18); CHLORIDE 104 MEQ/L (98-107); GLOMERULAR FILTRATION RATE 69 ML/MIN (>89); MAGNESIUM 1.9 MG/DL (1.5-2.5); POTASSIUM 3.5 MEQ/L (3.5-5.1); SODIUM (NA) 136 MEQ/L (136-145)
[2017-11-04 05:50] LABS: ALKALINE PHOSPHATASE 99 U/L (45-117); TOTAL BILIRUBIN ADULT 1.1 MG/DL (0.2-1.0)
[2017-11-04] MEDS: INSULIN ASPART SUPPLEMENTAL SCALE SQ SCH ×4 (08:00→20:52)
[2017-11-04] MEDS: CITALOPRAM HYDROBROMIDE 40 MG TAB PO SCH (08:38)
[2017-11-04] MEDS: NIFEdipine 20 MG CAP PO SCH ×2 (08:38→20:52)
[2017-11-04] MEDS: ASPIRIN EC 81 MG TABEC PO SCH (08:38)
[2017-11-04] MEDS: ATORVASTATIN 10 MG TAB PO SCH (08:38)
[2017-11-04] MEDS: SODIUM CHLORIDE 0.9% FLUSH 10 ML FLUSH IV FLUSH SCH ×2 (08:39→20:52)
--- NOTE | 2017-11-04 09:01 | HHI.PR ---
Review/Management Daily Summary 11/04 no recurrence of confusion alert and pleasant this am spoke to RN possible dementia with resolved confusion may need closer outpt supervision office f/u in 2 weeks Subjective Subjective Comments No acute neuro events reported No headache Active Medications Current Medications Medications (Trade) Dose Ordered Sig/Paresh Route Start Time Stop Time Status Last Admin (NS Flush) 2 ml BID IV FLUSH 11/03/17 09:00 11/04/17 08:39 (NS Flush) 2 ml UNSCH PRN IV FLUSH 11/02/17 22:15 (Vasotec Inj) 2.5 mg Q6H PRN IV PUSH 11/03/17 00:00 11/03/17 00:10 (CeleXA) 40 mg DAILY PO 11/03/17 09:00 11/04/17 08:38 (Aricept) 5 mg HS PO 11/03/17 21:00 11/03/17 22:17 (Synthroid) 88 mcg DAILY@0600 PO 11/03/17 06:00 11/04/17 04:12 (Pneumovax-23 Inj) 25 mcg ONCE ONCE IM 11/04/17 10:00 11/04/17 10:01 (Flu (Quadrivalent) Vaccine Inj) 0.5 ml ONCE ONCE IM 11/04/17 10:00 11/04/17 10:01 (D50w (Vial) Inj) 50 ml UNSCH PRN IV PUSH 11/03/17 11:30 (Glucagon Inj) 1 mg UNSCH PRN OTHER 11/03/17 11:30 (NovoLOG SUPPLEMENTAL SCALE) 1 ACHS SLIDING SCALE SQ 11/03/17 12:00 (Procardia) 60 mg BID PO 11/03/17 21:00 11/04/17 08:38 (Lipitor) 10 mg DAILY PO 11/04/17 09:00 11/04/17 08:38 (Ecotrin Ec) 81 mg DAILY PO 11/04/17 09:00 11/04/17 08:38 Allergies Allergies Coded Allergies No Known Allergies (Verified04/08/15) Exam I&O / VS Vital Signs Date Time Temp Pulse Resp B/P (MAP) Pulse Ox O2 Delivery O2 Flow Rate FiO2 11/04/17 07:31 98.0 72 18 183/84 (117) 93 11/04/17 07:03 74 11/04/17 04:09 97.5 75 17 188/95 (126) 95 11/04/17 00:19 97.6 57 17 143/67 (92) 92 11/03/17 20:13 98.1 61 17 169/87 (114) 94 11/03/17 16:05 98.1 71 18 134/70 (91) 96 Objective Radiology Results Last 48 hours Impressions Head Magnetic Resonance Angiography 11/03/17 Signed Impressions: Service Date/Time: Friday, November 03, 2017 12:48 - CONCLUSION: Negative for major branch vessel occlusion or aneurysm. Julian Hawkins MD FACR Carotid Artery Ultrasound 11/03/17 Signed Impressions: Service Date/Time: Friday, November 03, 2017 08:45 - CONCLUSION: Negative examination for a hemodynamically significant carotid stenosis. . Julian Hawkins MD FACR Brain MRI 11/03/17 Signed Impressions: Service Date/Time: Friday, November 03, 2017 12:48 - CONCLUSION: Atrophy with marked periventricular white matter changes, negative for acute ischemic event. Julian Hawkins MD FACR Head CT 11/02/172010 Signed Impressions: Service Date/Time: Thursday, November 02, 2017 20:30 - CONCLUSION: 1. Moderate to severe periventricular and subcortical white matter small vessel ischemic changes bilaterally. 2. No acute infarct, acute hemorrhage, mass effect or extra-axial fluid collections. Jonathan Castrejon MD Chest X-Ray 11/02/172010 Signed Impressions: Service Date/Time: Thursday, November 02, 2017 21:09 - CONCLUSION: Bibasilar streakiness consistent with atelectasis and/or scarring. Jonathan Castrejon MD Micro and Labs Laboratory Tests Test 11/03/17 17:05 11/04/17 04:06 White Blood Count 8.1 Red Blood Count 5.18 Hemoglobin 16.7 Hematocrit 49.2 Mean Corpuscular Volume 95.0 Mean Corpuscular Hemoglobin 32.3 Mean Corpuscular Hemoglobin Concent 34.0 Red Cell Distribution Width 13.2 Platelet Count 194 Mean Platelet Volume 10.9 Neutrophils (%) (Auto) 70.0 Lymphocytes (%) (Auto) 20.4 Monocytes (%) (Auto) 8.8 Eosinophils (%) (Auto) 0.4 Basophils (%) (Auto) 0.4 Neutrophils # (Auto) 5.7 Lymphocytes # (Auto) 1.7 Monocytes # (Auto) 0.7 Eosinophils # (Auto) 0.0 Basophils # (Auto) 0.0 CBC Comment DIFF FINAL Differential Comment Blood Urea Nitrogen 15 Creatinine 0.80 Random Glucose 93 Total Protein 6.6 Albumin 3.4 Calcium Level 8.3 Phosphorus Level 3.1 Magnesium Level 1.9 Alkaline Phosphatase 99 Aspartate Amino Transf (AST/SGOT) 22 Alanine Aminotransferase (ALT/SGPT) 23 Total Bilirubin 1.1 Sodium Level 136 Potassium Level 3.5 Chloride Level 104 Carbon Dioxide Level 24.7 Anion Gap 7 Estimat Glomerular Filtration Rate 69 Amauri Moulton MD Nov 04, 2017 09:01
[2017-11-04] MEDS ORDERED: INFLUENZA VIRUS VACCINE (QUADRIVALENT) 0.5 ML SYR IM ONE (10:00)
[2017-11-04] MEDS ORDERED: PNEUMOCOCCAL POLYVALENT INJ 25 MCG/0.5 ML SYR IM ONE (10:00)
--- NOTE | 2017-11-04 12:51 | PD.CARD.PN ---
Subjective Subjective Remarks No events overnight Frustrated with nursing due to multiple issues Telemetry showing most likely episodes of Afib Objective Medications Current Medications Medications (Trade) Dose Ordered Sig/Paresh Route Start Time Stop Time Status Last Admin (NS Flush) 2 ml BID IV FLUSH 11/03/17 09:00 11/04/17 08:39 (NS Flush) 2 ml UNSCH PRN IV FLUSH 11/02/17 22:15 (Vasotec Inj) 2.5 mg Q6H PRN IV PUSH 11/03/17 00:00 11/03/17 00:10 (CeleXA) 40 mg DAILY PO 11/03/17 09:00 11/04/17 08:38 (Aricept) 5 mg HS PO 11/03/17 21:00 11/03/17 22:17 (Synthroid) 88 mcg DAILY@0600 PO 11/03/17 06:00 11/04/17 04:12 (D50w (Vial) Inj) 50 ml UNSCH PRN IV PUSH 11/03/17 11:30 (Glucagon Inj) 1 mg UNSCH PRN OTHER 11/03/17 11:30 (NovoLOG SUPPLEMENTAL SCALE) 1 ACHS SLIDING SCALE SQ 11/03/17 12:00 (Procardia) 60 mg BID PO 11/03/17 21:00 11/04/17 08:38 (Lipitor) 10 mg DAILY PO 11/04/17 09:00 11/04/17 08:38 (Ecotrin Ec) 81 mg DAILY PO 11/04/17 09:00 11/04/17 08:38 Vital Signs / I&O Vital Signs Date Time Temp Pulse Resp B/P (MAP) Pulse Ox O2 Delivery O2 Flow Rate FiO2 11/04/17 11:36 64 11/04/17 11:29 97.7 72 18 117/59 (78) 94 11/04/17 07:31 98.0 72 18 183/84 (117) 93 11/04/17 07:03 74 11/04/17 04:09 97.5 75 17 188/95 (126) 95 11/04/17 00:19 97.6 57 17 143/67 (92) 92 11/03/17 20:13 98.1 61 17 169/87 (114) 94 11/03/17 16:05 98.1 71 18 134/70 (91) 96 Physical Exam GENERAL: NAD SKIN: Warm and dry. HEAD: Atraumatic. Normocephalic. EYES: Pupils equal and round. No scleral icterus. No injection or drainage. ENT: No nasal bleeding or discharge. Mucous membranes pink and moist. NECK: Trachea midline. No JVD. CARDIOVASCULAR: Regular rate and rhythm. 1/6 holosystolic murmur noted at the apex RESPIRATORY: No accessory muscle use. Clear to auscultation. Breath sounds equal bilaterally. GASTROINTESTINAL: Abdomen soft, non-tender, nondistended. Hepatic and splenic margins not palpable. MUSCULOSKELETAL: Extremities without clubbing, cyanosis. Trace edema bilaterally NEUROLOGICAL: Awake and alert. No obvious cranial nerve deficits. Motor grossly within normal limits. Five out of 5 muscle strength in the arms and legs. Normal speech. PSYCHIATRIC: Appropriate mood and affect; insight and judgment normal. Laboratory Laboratory Tests Test 11/03/17 17:05 11/04/17 04:06 Rapid Plasma Reagin NON-REACTIVE White Blood Count 8.1 TH/MM3 Red Blood Count 5.18 MIL/MM3 Hemoglobin 16.7 GM/DL Hematocrit 49.2 % Mean Corpuscular Volume 95.0 FL Mean Corpuscular Hemoglobin 32.3 PG Mean Corpuscular Hemoglobin Concent 34.0 % Red Cell Distribution Width 13.2 % Platelet Count 194 TH/MM3 Mean Platelet Volume 10.9 FL Neutrophils (%) (Auto) 70.0 % Lymphocytes (%) (Auto) 20.4 % Monocytes (%) (Auto) 8.8 % Eosinophils (%) (Auto) 0.4 % Basophils (%) (Auto) 0.4 % Neutrophils # (Auto) 5.7 TH/MM3 Lymphocytes # (Auto) 1.7 TH/MM3 Monocytes # (Auto) 0.7 TH/MM3 Eosinophils # (Auto) 0.0 TH/MM3 Basophils # (Auto) 0.0 TH/MM3 CBC Comment DIFF FINAL Differential Comment Blood Urea Nitrogen 15 MG/DL Creatinine 0.80 MG/DL Random Glucose 93 MG/DL Total Protein 6.6 GM/DL Albumin 3.4 GM/DL Calcium Level 8.3 MG/DL Phosphorus Level 3.1 MG/DL Magnesium Level 1.9 MG/DL Alkaline Phosphatase 99 U/L Aspartate Amino Transf (AST/SGOT) 22 U/L Alanine Aminotransferase (ALT/SGPT) 23 U/L Total Bilirubin 1.1 MG/DL Sodium Level 136 MEQ/L Potassium Level 3.5 MEQ/L Chloride Level 104 MEQ/L Carbon Dioxide Level 24.7 MEQ/L Anion Gap 7 MEQ/L Estimat Glomerular Filtration Rate 69 ML/MIN Assessment and Plan Problem List: (1) Confusion ICD Codes: R41.0 - Disorientation, unspecified (2) Bradycardia ICD Codes: R00.1 - Bradycardia, unspecified Status: Acute (3) HTN (hypertension) ICD Codes: I10 - Essential (primary) hypertension Status: Acute Assessment and Plan 1. Possible neurological event with encephalopathy of unknown cause. Event while waiting for MRI, not a syncopal event, would consider further neurologic cause 2. Mild bradycardia Appears asymptomatic 3. Short run of PAC on telemetry. 4. History of hypertension. 5. Afib overnight New diagnosis Would not place on anticoagulation at this time as patient is extremely unsteady on her feet Discussed benefits and risks with patient, she has concerns with falls and agrees to no anticoagulation If in the future she is more steady on her feet, then this should be reassessed 6. Follow up with Dr. Moore 7. EF 55-60%, trace MR/TR Kyree James DO Nov 04, 2017 12:51
--- NOTE | 2017-11-04 14:35 | HHI.PR ---
Subjective Remarks Follow up on patient with unsteadiness, confusion, ?vasovagal episode. Patient seen and examined. Patient complaining of upsetting interaction with an aide. She states she has been very upset since the incident and not thinking clearly, no appetite. She denies any weakness, numbness/tingling, dizziness, lightheadedness or vision changes. She denies any fever or chills. She denies any chest pain or dyspnea. She denies any nausea, vomiting or abdominal pain. She denies any urinary difficulties. She does not know when she had her last bowel movement. Objective Vitals Vital Signs Date Time Temp Pulse Resp B/P (MAP) Pulse Ox O2 Delivery O2 Flow Rate FiO2 11/04/17 11:36 64 11/04/17 11:29 97.7 72 18 117/59 (78) 94 11/04/17 07:31 98.0 72 18 183/84 (117) 93 11/04/17 07:03 74 11/04/17 04:09 97.5 75 17 188/95 (126) 95 11/04/17 00:19 97.6 57 17 143/67 (92) 92 11/03/17 20:13 98.1 61 17 169/87 (114) 94 11/03/17 16:05 98.1 71 18 134/70 (91) 96 Result Diagram: 11/04/17 0406 11/04/17 0406 Imaging Last Impressions Head Magnetic Resonance Angiography 11/03/17 0000 Signed Impressions: Service Date/Time: Friday, November 03, 2017 12:48 - CONCLUSION: Negative for major branch vessel occlusion or aneurysm. Julian Hawkins MD FACR Carotid Artery Ultrasound 11/03/17 0000 Signed Impressions: Service Date/Time: Friday, November 03, 2017 08:45 - CONCLUSION: Negative examination for a hemodynamically significant carotid stenosis. . Julian Hawkins MD FACR Brain MRI 11/03/17 Signed Impressions: Service Date/Time: Friday, November 03, 2017 12:48 - CONCLUSION: Atrophy with marked periventricular white matter changes, negative for acute ischemic event. Julian Hawkins MD FACR Head CT 11/02/172010 Signed Impressions: Service Date/Time: Thursday, November 02, 2017 20:30 - CONCLUSION: 1. Moderate to severe periventricular and subcortical white matter small vessel ischemic changes bilaterally. 2. No acute infarct, acute hemorrhage, mass effect or extra-axial fluid collections. Jonathan Castrejon MD Chest X-Ray 11/02/172010 Signed Impressions: Service Date/Time: Thursday, November 02, 2017 21:09 - CONCLUSION: Bibasilar streakiness consistent with atelectasis and/or scarring. Jonathan Castrejon MD Objective Remarks GENERAL: Well-nourished, well-developed patient in NAD. Awake and alert. Sitting up in hospital bed. SKIN: Warm and dry. No rash. HEAD: Normocephalic. Atraumatic. EYES: Pupils equal and round. No scleral icterus. No injection or drainage. ENT: No nasal bleeding or discharge. Mucous membranes pink and moist. NECK: Supple. Trachea midline. CARDIOVASCULAR: Regular rate and rhythm. S1, S2 noted. No murmur appreciated. RESPIRATORY: No accessory muscle use. Clear to auscultation. Breath sounds equal bilaterally. GASTROINTESTINAL: Abdomen soft, non-tender, nondistended. Normoactive bowel sounds x4. MUSCULOSKELETAL: No obvious deformities. Extremities without clubbing, cyanosis , or edema. NEUROLOGICAL: Awake and alert. No obvious cranial nerve deficits. Motor grossly within normal limits. 5/5 muscle strength in bilateral upper and lower extremities. Normal speech. PSYCHIATRIC: Appropriate mood and affect; insight and judgment normal. Medications and IVs Current Medications Medications (Trade) Dose Ordered Sig/Paresh Route Start Time Stop Time Status Last Admin (NS Flush) 2 ml BID IV FLUSH 11/03/17 09:00 11/04/17 08:39 (NS Flush) 2 ml UNSCH PRN IV FLUSH 11/02/17 22:15 (Vasotec Inj) 2.5 mg Q6H PRN IV PUSH 11/03/17 00:00 11/03/17 00:10 (CeleXA) 40 mg DAILY PO 11/03/17 09:00 11/04/17 08:38 (Aricept) 5 mg HS PO 11/03/17 21:00 11/03/17 22:17 (Synthroid) 88 mcg DAILY@0600 PO 11/03/17 06:00 11/04/17 04:12 (D50w (Vial) Inj) 50 ml UNSCH PRN IV PUSH 11/03/17 11:30 (Glucagon Inj) 1 mg UNSCH PRN OTHER 11/03/17 11:30 (NovoLOG SUPPLEMENTAL SCALE) 1 ACHS SLIDING SCALE SQ 11/03/17 12:00 (Procardia) 60 mg BID PO 11/03/17 21:00 11/04/17 08:38 (Lipitor) 10 mg DAILY PO 11/04/17 09:00 11/04/17 08:38 (Ecotrin Ec) 81 mg DAILY PO 11/04/17 09:00 11/04/17 08:38 (Dia-Colace) 1 tab BID PO 11/04/17 21:00 A/P Problem List: (1) Noncompliance w/medication treatment due to intermit use of medication ICD Code: Z91.14 - Patient's other noncompliance with medication regimen Status: Acute (2) Bradycardia ICD Code: R00.1 - Bradycardia, unspecified Status: Acute (3) TIA (transient ischemic attack) ICD Code: G45.9 - Transient cerebral ischemic attack, unspecified Status: Acute (4) Syncope ICD Code: R55 - Syncope and collapse Status: Acute (5) HTN (hypertension) ICD Code: I10 - Essential (primary) hypertension Status: Acute Assessment and Plan 81-year-old female admitted with unsteadiness, difficulty speaking, uncontrolled hypertension and medication noncompliance. TIA - Neurology following, appreciate assistance. - CT of the head moderate to severe periventricular and subcortical white matter small vessel ischemic changes, no e/o acute infarct or hemorrhage - Carotid ultrasound negative - MRA negative - MRI negative for acute ischemic event - RPR negative. B12 281. - Continue on statin therapy - ASA 81mg daily - Continue with PT/OT - PT is recommending inpatient rehabilitation. Case management consulted to assist with discharge planning. Near syncopal episode - Patient with episode while awaiting to get MRI in the holding area, patient slumped over staring off into the distance not responding. - Cardiology consulted, appreciate assistance. Telemetry showing likely episodes of A. fib. Discussed with Dr. James who recommends against starting anticoagulation at this time secondary to patient's unsteadiness. Recommended baby aspirin daily for now and will reassess in the future. Follow- up with Dr. Moore. - EEG done showing no seizure activity - Echo done and EF 55-60%, trace MR/TR Hypertension - uncontrolled at admission with history of medication noncompliance - Improved - Continue on Procardia 60 mg twice a day - Continue to monitor BP and adjust treatment accordingly Dementia - Continue on Aricept Hypothyroidism - continue on home dose of Synthroid - TSH within normal limits DVT prophylaxis - Lovenox Discussed with patient, nursing staff, Dr. James and Dr. Umaña Discharge Planning Case management assisting with discharge planning, Fabio evaluating for possible acceptance Problem Qualifiers (1) TIA (transient ischemic attack): Qualified Codes: G45.9 - Transient cerebral ischemic attack, unspecified Uzma Chaidez Nov 04, 2017 14:35
[2017-11-04] MEDS ORDERED: CYANOCOBALAMIN 1000 MCG/ML VIAL IM ONE (17:00)
[2017-11-04] MEDS: ENOXAPARIN SODIUM 40 MG/0.4 ML SYRINGE SQ SCH (18:18)
[2017-11-04] MEDS: DOCUSATE SODIUM 50 MG/SENNA 8.6 MG TAB PO SCH (20:52)
[2017-11-04] MEDS: DONEPEZIL HCL 5 MG TAB PO SCH (20:52)
[2017-11-05 00:02] VITALS: BP 118/58; PULSE 73; RESP 18; TEMP 98.1; O2SAT 92
[2017-11-05 03:34] VITALS: BP 132/86; PULSE 74; RESP 18; TEMP 97.9; O2SAT 93
[2017-11-05] MEDS: LEVOTHYROXINE SODIUM 88 MCG TAB PO SCH (05:03)
[2017-11-05] MEDS: INSULIN ASPART SUPPLEMENTAL SCALE SQ SCH ×4 (08:00→21:00)
[2017-11-05] MEDS: DOCUSATE SODIUM 50 MG/SENNA 8.6 MG TAB PO SCH ×2 (08:26→21:18)
[2017-11-05] MEDS: NIFEdipine 20 MG CAP PO SCH ×2 (08:26→21:18)
[2017-11-05] MEDS: CITALOPRAM HYDROBROMIDE 40 MG TAB PO SCH (08:27)
[2017-11-05] MEDS: ASPIRIN EC 81 MG TABEC PO SCH (08:27)
[2017-11-05] MEDS: CYANOCOBALAMIN 1,000 MCG TAB PO SCH (08:27)
[2017-11-05] MEDS: SODIUM CHLORIDE 0.9% FLUSH 10 ML FLUSH IV FLUSH SCH ×2 (08:27→21:18)
[2017-11-05] MEDS: ATORVASTATIN 10 MG TAB PO SCH (08:27)
[2017-11-05 08:32] VITALS: BP_SYST 123; BP_SYST 137; BP_SYST 164; BP_DIAS 78; BP_DIAS 83; BP_DIAS 88; PULSE 66; RESP 16; TEMP 98.4; O2SAT 95
[2017-11-05 12:04] VITALS: BP 121/77; PULSE 68; RESP 16; TEMP 97.4; O2SAT 95
--- NOTE | 2017-11-05 12:57 | HHI.PR ---
Subjective Remarks Follow up on patient with unsteadiness, confusion, ?vasovagal episode. Patient seen and examined. Patient denies any acute medical complaints at this time. She denies any fever or chills. Denies any chest pain or shortness of breath. Denies any nausea, vomiting or abdominal pain. Denies any urinary difficulties. Reports no bowel movement. Discussed with nursing staff, no acute issues noted. She is able to reach them the hospital but does not know which one. She knows that she is in the city of [facility]. She reported that the year was 1999. She did know that Farrukh was president. Objective Vitals Vital Signs Date Time Temp Pulse Resp B/P (MAP) Pulse Ox O2 Delivery O2 Flow Rate FiO2 11/05/17 12:04 97.4 68 16 121/77 (92) 95 11/05/17 08:32 98.4 66 16 164/88 (113) 95 137/83 (101) 123/78 (93) 11/05/17 03:34 97.9 74 18 132/86 (101) 93 11/05/17 00:02 98.1 73 18 118/58 (78) 92 11/04/17 21:01 98.2 66 18 141/75 (97) 94 156/88 (110) 125/75 (92) 11/04/17 16:13 98.3 72 18 178/94 (122) 93 Result Diagram: 11/04/17 0406 11/04/17 0406 Imaging Last Impressions Head Magnetic Resonance Angiography 11/03/17 0000 Signed Impressions: Service Date/Time: Friday, November 03, 2017 12:48 - CONCLUSION: Negative for major branch vessel occlusion or aneurysm. Julian Hawkins MD FACR Carotid Artery Ultrasound 11/03/17 Signed Impressions: Service Date/Time: Friday, November 03, 2017 08:45 - CONCLUSION: Negative examination for a hemodynamically significant carotid stenosis. . Julian Hawkins MD FACR Brain MRI 11/03/17 Signed Impressions: Service Date/Time: Friday, November 03, 2017 12:48 - CONCLUSION: Atrophy with marked periventricular white matter changes, negative for acute ischemic event. Julian Hawkins MD FACR Head CT 11/02/172010 Signed Impressions: Service Date/Time: Thursday, November 02, 2017 20:30 - CONCLUSION: 1. Moderate to severe periventricular and subcortical white matter small vessel ischemic changes bilaterally. 2. No acute infarct, acute hemorrhage, mass effect or extra-axial fluid collections. Jonathan Castrejon MD Chest X-Ray 11/02/172010 Signed Impressions: Service Date/Time: Thursday, November 02, 2017 21:09 - CONCLUSION: Bibasilar streakiness consistent with atelectasis and/or scarring. Jonathan Castrejon MD Objective Remarks GENERAL: Well-nourished, well-developed patient in NAD. Awake and alert. Lying in hospital bed. Appears comfortable. SKIN: Warm and dry. No rash. HEAD: Normocephalic. Atraumatic. EYES: EOMI. No scleral icterus. No injection or drainage. ENT: No nasal bleeding or discharge. Mucous membranes pink and moist. NECK: Supple. Trachea midline. CARDIOVASCULAR: Regular rate and rhythm. S1, S2 noted. No murmur appreciated. RESPIRATORY: No accessory muscle use. Clear to auscultation. Breath sounds equal bilaterally. GASTROINTESTINAL: Abdomen soft, non-tender, nondistended. Normoactive bowel sounds x4. MUSCULOSKELETAL: No obvious deformities. Extremities without clubbing, cyanosis , or edema. NEUROLOGICAL: Awake and alert. No obvious cranial nerve deficits. Motor grossly within normal limits. 5/5 muscle strength in bilateral upper and lower extremities. Normal speech. Medications and IVs Current Medications Medications (Trade) Dose Ordered Sig/Paresh Route Start Time Stop Time Status Last Admin (NS Flush) 2 ml BID IV FLUSH 11/03/17 09:00 11/05/17 08:27 (NS Flush) 2 ml UNSCH PRN IV FLUSH 11/02/17 22:15 (Vasotec Inj) 2.5 mg Q6H PRN IV PUSH 11/03/17 00:00 11/03/17 00:10 (CeleXA) 40 mg DAILY PO 11/03/17 09:00 11/05/17 08:27 (Aricept) 5 mg HS PO 11/03/17 21:00 11/04/17 20:52 (Synthroid) 88 mcg DAILY@0600 PO 11/03/17 06:00 11/05/17 05:03 (D50w (Vial) Inj) 50 ml UNSCH PRN IV PUSH 11/03/17 11:30 (Glucagon Inj) 1 mg UNSCH PRN OTHER 11/03/17 11:30 (NovoLOG SUPPLEMENTAL SCALE) 1 ACHS SLIDING SCALE SQ 11/03/17 12:00 (Procardia) 60 mg BID PO 11/03/17 21:00 11/05/17 08:26 (Lipitor) 10 mg DAILY PO 11/04/17 09:00 11/05/17 08:27 (Ecotrin Ec) 81 mg DAILY PO 11/04/17 09:00 11/05/17 08:27 (Dia-Colace) 1 tab BID PO 11/04/17 21:00 11/05/17 08:26 (Lovenox Inj) 40 mg Q24H SQ 11/04/17 16:00 11/04/17 18:18 (Vitamin B12) 1,000 mcg DAILY PO 11/05/17 09:00 11/05/17 08:27 A/P Problem List: (1) Noncompliance w/medication treatment due to intermit use of medication ICD Code: Z91.14 - Patient's other noncompliance with medication regimen Status: Acute (2) Bradycardia ICD Code: R00.1 - Bradycardia, unspecified Status: Acute (3) TIA (transient ischemic attack) ICD Code: G45.9 - Transient cerebral ischemic attack, unspecified Status: Acute (4) Syncope ICD Code: R55 - Syncope and collapse Status: Acute (5) HTN (hypertension) ICD Code: I10 - Essential (primary) hypertension Status: Acute Assessment and Plan 81-year-old female admitted with unsteadiness, difficulty speaking, uncontrolled hypertension and medication noncompliance. TIA - Neurology following, appreciate assistance. - CT of the head moderate to severe periventricular and subcortical white matter small vessel ischemic changes, no e/o acute infarct or hemorrhage - Carotid ultrasound negative - MRA negative - MRI negative for acute ischemic event - RPR negative. B12 281, low end of normal. B12 1000mcg IM given. - Continue on statin therapy - ASA 81mg daily - Continue with PT/OT - PT is recommending inpatient rehabilitation. Case management consulted to assist with discharge planning. Near syncopal episode - Patient with episode while awaiting to get MRI in the holding area, patient slumped over staring off into the distance not responding. - Cardiology consulted, appreciate assistance. Telemetry showing likely episodes of A. fib. Discussed with Dr. James who recommends against starting anticoagulation at this time secondary to patient's unsteadiness. Recommended baby aspirin daily for now and will reassess in the future. Follow- up with Dr. Moore. - EEG done showing no seizure activity - Echo done and EF 55-60%, trace MR/TR - (+)orthostatics. Counseled patient on slow transitions with postural changes. LINDA hose upon standing. Hypertension - uncontrolled at admission with history of medication noncompliance - Improved - Continue on Procardia 60 mg twice a day - Continue to monitor BP and adjust treatment accordingly Dementia - Continue on Aricept - seen in consultation by ST pam arce, scored . THIS PATIENT IS CURRENTLY DEMONSTRATING DEFICITS OF ORIENTATION, MEMORY, PROBLEM SOLVING, AND VERBAL PROCESSING. - Patient is unsafe discharge as she lives alone at home. Case management assisting with discharge planning. Hypothyroidism - continue on home dose of Synthroid - TSH within normal limits DVT prophylaxis - patient is on Lovenox Discussed with patient, nursing staff, Dr. Umaña Discharge Planning Case management assisting with discharge planning, Fabio declined acceptance. She is an unsafe discharge, unable to return home alone. Problem Qualifiers (1) TIA (transient ischemic attack): Qualified Codes: G45.9 - Transient cerebral ischemic attack, unspecified Uzma Chaidez Nov 05, 2017 12:57
[2017-11-05 15:34] VITALS: BP 143/77; PULSE 80; RESP 16; TEMP 97.9; O2SAT 95
[2017-11-05] MEDS: ENOXAPARIN SODIUM 40 MG/0.4 ML SYRINGE SQ SCH (16:00)
[2017-11-05 20:30] VITALS: BP 138/73; PULSE 67; RESP 18; TEMP 97.9; O2SAT 94
[2017-11-05] MEDS: DONEPEZIL HCL 5 MG TAB PO SCH (21:18)
[2017-11-06] VITALS (12 sets, daily range): BP systolic 127–188; BP diastolic 56–90; PULSE 58–133; RESP 16–20; TEMP 97.3–98.8; O2SAT 93–97
[2017-11-06] MEDS: LEVOTHYROXINE SODIUM 88 MCG TAB PO SCH (05:30)
--- NOTE | 2017-11-06 07:51 | HHI.PR ---
Subjective Remarks Follow up on patient with unsteadiness, confusion, ?vasovagal episode. Patient seen and examined. Patient participated with physical therapy earlier today. Short time after, patient was found by FORMULA WEIGHER who had gone into the room to obtain routine vitals and found patient with eyes closed and unresponsive. Reportedly , patient was cold and clammy to the touch. Heart rate fluctuating in the 120s and down to the 70s. BP 127/57. O2 sat 94%. Blood sugar 143. Patient responded to sternal rub after a few minutes. (+)Urinary incontinence. No tongue biting. Patient has returned to baseline. She denies any recollection of the event. She denies any complaints of pain. She denies any lightheaded, dizziness, headache or vision changes. She denies any shortness of breath or chest pain. Denies any nausea, vomiting or abdominal pain. She is oriented. Objective Vitals Vital Signs Date Time Temp Pulse Resp B/P (MAP) Pulse Ox O2 Delivery O2 Flow Rate FiO2 11/06/17 07:17 98.0 70 20 185/77 (113) 96 11/06/17 03:30 97.9 60 18 148/78 (101) 94 11/06/17 00:21 97.5 70 18 164/70 (101) 93 11/05/17 20:30 97.9 67 18 138/73 (94) 94 11/05/17 15:34 97.9 80 16 143/77 (99) 95 11/05/17 12:04 97.4 68 16 121/77 (92) 95 11/05/17 08:32 98.4 66 16 164/88 (113) 95 137/83 (101) 123/78 (93) Result Diagram: 11/04/17 0406 11/04/17 0406 Imaging Last Impressions Head Magnetic Resonance Angiography 11/03/17 0000 Signed Impressions: Service Date/Time: Friday, November 03, 2017 12:48 - CONCLUSION: Negative for major branch vessel occlusion or aneurysm. Julian Hawkins MD FACR Carotid Artery Ultrasound 11/03/17 0000 Signed Impressions: Service Date/Time: Friday, November 03, 2017 08:45 - CONCLUSION: Negative examination for a hemodynamically significant carotid stenosis. . Julian Hawkins MD FACR Brain MRI 11/03/17 0000 Signed Impressions: Service Date/Time: Friday, November 03, 2017 12:48 - CONCLUSION: Atrophy with marked periventricular white matter changes, negative for acute ischemic event. Julian Hawkins MD FACR Head CT 11/02/172010 Signed Impressions: Service Date/Time: Thursday, November 02, 2017 20:30 - CONCLUSION: 1. Moderate to severe periventricular and subcortical white matter small vessel ischemic changes bilaterally. 2. No acute infarct, acute hemorrhage, mass effect or extra-axial fluid collections. Jonathan Castrejon MD Chest X-Ray 11/02/172010 Signed Impressions: Service Date/Time: Thursday, November 02, 2017 21:09 - CONCLUSION: Bibasilar streakiness consistent with atelectasis and/or scarring. Jonathan Castrejon MD Objective Remarks GENERAL: Well-nourished, well-developed patient in NAD. Awake and alert. Lying in hospital bed. Oriented. Able to follow commands. SKIN: Cool and dry. No rash. HEAD: Normocephalic. Atraumatic. EYES: PEERLA. EOMI. No scleral icterus. No injection or drainage. ENT: No nasal bleeding or discharge. Mucous membranes pink and moist. NECK: Supple. Trachea midline. CARDIOVASCULAR: Irregular. S1, S2 noted. No murmur appreciated. RESPIRATORY: Nonlabored. Clear to auscultation. Breath sounds equal bilaterally. GASTROINTESTINAL: Abdomen soft, non-tender, nondistended. Normoactive bowel sounds x4. MUSCULOSKELETAL: No obvious deformities. Extremities without clubbing, cyanosis , or edema. NEUROLOGICAL: Awake and alert. No obvious cranial nerve deficits. Motor and sensory exam grossly within normal limits. No focal neurologic findings appreciated. Normal speech. Medications and IVs Current Medications Medications (Trade) Dose Ordered Sig/Paresh Route Start Time Stop Time Status Last Admin (NS Flush) 2 ml BID IV FLUSH 11/03/17 09:00 11/05/17 21:18 (NS Flush) 2 ml UNSCH PRN IV FLUSH 11/02/17 22:15 (Vasotec Inj) 2.5 mg Q6H PRN IV PUSH 11/03/17 00:00 11/03/17 00:10 (CeleXA) 40 mg DAILY PO 11/03/17 09:00 11/05/17 08:27 (Aricept) 5 mg HS PO 11/03/17 21:00 11/05/17 21:18 (Synthroid) 88 mcg DAILY@0600 PO 11/03/17 06:00 11/06/17 05:30 (D50w (Vial) Inj) 50 ml UNSCH PRN IV PUSH 11/03/17 11:30 (Glucagon Inj) 1 mg UNSCH PRN OTHER 11/03/17 11:30 (NovoLOG SUPPLEMENTAL SCALE) 1 ACHS SLIDING SCALE SQ 11/03/17 12:00 (Procardia) 60 mg BID PO 11/03/17 21:00 11/05/17 21:18 (Lipitor) 10 mg DAILY PO 11/04/17 09:00 11/05/17 08:27 (Ecotrin Ec) 81 mg DAILY PO 11/04/17 09:00 11/05/17 08:27 (Dia-Colace) 1 tab BID PO 11/04/17 21:00 11/05/17 21:18 (Lovenox Inj) 40 mg Q24H SQ 11/04/17 16:00 11/05/17 16:00 (Vitamin B12) 1,000 mcg DAILY PO 11/05/17 09:00 11/05/17 08:27 A/P Problem List: (1) Noncompliance w/medication treatment due to intermit use of medication ICD Code: Z91.14 - Patient's other noncompliance with medication regimen Status: Acute (2) Bradycardia ICD Code: R00.1 - Bradycardia, unspecified Status: Acute (3) TIA (transient ischemic attack) ICD Code: G45.9 - Transient cerebral ischemic attack, unspecified Status: Acute (4) Syncope ICD Code: R55 - Syncope and collapse Status: Acute (5) HTN (hypertension) ICD Code: I10 - Essential (primary) hypertension Status: Acute Assessment and Plan 81-year-old female admitted with unsteadiness, difficulty speaking, uncontrolled hypertension and medication noncompliance. TIA - Neurology following, appreciate assistance. - CT of the head moderate to severe periventricular and subcortical white matter small vessel ischemic changes, no e/o acute infarct or hemorrhage - Carotid ultrasound negative - MRA negative - MRI negative for acute ischemic event - RPR negative. B12 281, low end of normal, B12 1000mcg given. - Continue on statin therapy - ASA 81mg daily - Continue with PT/OT - PT is recommending inpatient rehabilitation. Case management consulted to assist with discharge planning. Syncopal episode ?Seizure activity - Patient with episode while awaiting to get MRI in the holding area, patient slumped over staring off into the distance not responding. - Cardiology consulted, appreciate assistance. Telemetry showing likely episodes of A. fib. Discussed with Dr. James who recommends against starting anticoagulation at this time secondary to patient's unsteadiness. Recommended baby aspirin daily for now and will reassess in the future. Follow- up with Dr. Moore. - EEG done showing no seizure activity - Echo done and EF 55-60%, trace MR/TR - (+)orthostatics. Counseled patient on slow transitions with postural changes. LINDA hose upon standing. - 11/06 patient found unresponsive by FORMULA WEIGHER, fluctuating HR 120s to 70s, (+) urinary incontinence, did not bite tongue. Responded to sternal rub after several minutes. Patient with no recollection of events. No confusion following episode, oriented. Discussed with Dr. James. Reconsult Neurology. Obtain repeat EEG. Lab studies ordered. Hypertension - uncontrolled at admission with history of medication noncompliance - Improved - Continue on Procardia 60 mg twice a day - Continue to monitor BP and adjust treatment accordingly Dementia - Continue on Aricept - seen in consultation by ST pam arce, scored 16/30. THIS PATIENT IS CURRENTLY DEMONSTRATING DEFICITS OF ORIENTATION, MEMORY, PROBLEM SOLVING, AND VERBAL PROCESSING. - Patient is unsafe discharge as she lives alone at home. Case management assisting with discharge planning. Hypothyroidism - continue on home dose of Synthroid - TSH within normal limits DVT prophylaxis - patient is on Lovenox Discussed with patient, nursing staff, Dr. James, Dr. Umaña Discharge Planning Case management assisting with ongoing discharge planning, [facility] declined acceptance. Pending clinical course, EEG results and Neurology clearance. Problem Qualifiers (1) TIA (transient ischemic attack): Qualified Codes: G45.9 - Transient cerebral ischemic attack, unspecified Uzma Chaidez Nov 06, 2017 07:51
[2017-11-06] MEDS: INSULIN ASPART SUPPLEMENTAL SCALE SQ SCH ×4 (08:00→23:40)
[2017-11-06] MEDS: CYANOCOBALAMIN 1,000 MCG TAB PO SCH (09:13)
[2017-11-06] MEDS: NIFEdipine 20 MG CAP PO SCH ×2 (09:13→20:31)
[2017-11-06] MEDS: CITALOPRAM HYDROBROMIDE 40 MG TAB PO SCH (09:13)
[2017-11-06] MEDS: ASPIRIN EC 81 MG TABEC PO SCH (09:13)
[2017-11-06] MEDS: ATORVASTATIN 10 MG TAB PO SCH (09:14)
[2017-11-06] MEDS: SODIUM CHLORIDE 0.9% FLUSH 10 ML FLUSH IV FLUSH SCH ×2 (09:14→20:31)
[2017-11-06] MEDS: DOCUSATE SODIUM 50 MG/SENNA 8.6 MG TAB PO SCH ×2 (09:14→20:30)
[2017-11-06 13:20] LABS: BASOPHIL % 0.3 % (0.0-2.0); EOSINOPHIL % 0.4 % (0.0-4.0); HEMO FLAGS DIFF FINAL; LYMPH % 10.6 % (9.0-44.0); LYMPHOCYTE # 1.1 TH/MM3 (1.0-4.8); MEAN CELL VOLUME 95.2 FL (80.0-100.0); MEAN CORPUSCULAR HEMOGLOBIN 32.2 PG (27.0-34.0); MEAN CORPUSCULAR HGB CONC 33.9 % (32.0-36.0); MONO % 9.1 % (0.0-8.0); NEUT % 79.6 % (16.0-70.0); PLATELET COUNT 189 TH/MM3 (150-450); RED BLOOD COUNT 5.46 MIL/MM3 (4.00-5.30); RED CELL DISTRIBUTION WIDTH 13.2 % (11.6-17.2); WHITE BLOOD COUNT 10.1 TH/MM3 (4.0-11.0)
[2017-11-06 13:46] LABS: ALKALINE PHOSPHATASE 101 U/L (45-117); ALT (GPT) 25 U/L (10-53); ANION GAP 3 MEQ/L (5-15); AST (GOT) 29 U/L (15-37); BICARBONATE 28.9 MEQ/L (21.0-32.0); BLOOD UREA NITROGEN 15 MG/DL (7-18); CHLORIDE 101 MEQ/L (98-107); GLOMERULAR FILTRATION RATE 49 ML/MIN (>89); MAGNESIUM 2.1 MG/DL (1.5-2.5); SODIUM (NA) 133 MEQ/L (136-145); TOTAL BILIRUBIN ADULT 1.1 MG/DL (0.2-1.0)
[2017-11-06 13:47] LABS: POTASSIUM 5.2 MEQ/L (3.5-5.1)
--- NOTE | 2017-11-06 14:23 | PD.CARD.PN ---
Subjective Subjective Remarks Asked to see the patient again due to episode earlier in the day Apparently the patient was up walking with physical therapy. They sat her in bed. Nurse Aid came to do vitals and the patients head was slumped to the side and they could not wake her. She was incontinent of urine. Finally after a long sternal rub she awoke somewhat confused. During this her heart rates were stable without AV block or bradycardia, and blood pressure was around 125/60, 94 % O2 sat, and blood sugar 143. In seeing her post-event, she is now awake and alert with no complaints. She does not remember the event at all/ Objective Medications Current Medications Medications (Trade) Dose Ordered Sig/Paresh Route Start Time Stop Time Status Last Admin (NS Flush) 2 ml BID IV FLUSH 11/03/17 09:00 11/06/17 09:14 (NS Flush) 2 ml UNSCH PRN IV FLUSH 11/02/17 22:15 (Vasotec Inj) 2.5 mg Q6H PRN IV PUSH 11/03/17 00:00 11/03/17 00:10 (CeleXA) 40 mg DAILY PO 11/03/17 09:00 11/06/17 09:13 (Aricept) 5 mg HS PO 11/03/17 21:00 11/05/17 21:18 (Synthroid) 88 mcg DAILY@0600 PO 11/03/17 06:00 11/06/17 05:30 (D50w (Vial) Inj) 50 ml UNSCH PRN IV PUSH 11/03/17 11:30 (Glucagon Inj) 1 mg UNSCH PRN OTHER 11/03/17 11:30 (NovoLOG SUPPLEMENTAL SCALE) 1 ACHS SLIDING SCALE SQ 11/03/17 12:00 (Procardia) 60 mg BID PO 11/03/17 21:00 11/06/17 09:13 (Lipitor) 10 mg DAILY PO 11/04/17 09:00 11/06/17 09:14 (Ecotrin Ec) 81 mg DAILY PO 11/04/17 09:00 11/06/17 09:13 (Dia-Colace) 1 tab BID PO 11/04/17 21:00 11/06/17 09:14 (Lovenox Inj) 40 mg Q24H SQ 11/04/17 16:00 11/05/17 16:00 (Vitamin B12) 1,000 mcg DAILY PO 11/05/17 09:00 11/06/17 09:13 Vital Signs / I&O Vital Signs Date Time Temp Pulse Resp B/P (MAP) Pulse Ox O2 Delivery O2 Flow Rate FiO2 11/06/17 12:45 133 11/06/17 11:23 97.3 124 20 127/56 (79) 97 11/06/17 07:47 85 11/06/17 07:17 98.0 70 20 185/77 (113) 96 11/06/17 07:02 58 11/06/17 03:30 97.9 60 18 148/78 (101) 94 11/06/17 00:21 97.5 70 18 164/70 (101) 93 11/05/17 20:30 97.9 67 18 138/73 (94) 94 11/05/17 15:34 97.9 80 16 143/77 (99) 95 Physical Exam GENERAL: NAD SKIN: Warm and dry. HEAD: Atraumatic. Normocephalic. EYES: Pupils equal and round. No scleral icterus. No injection or drainage. ENT: No nasal bleeding or discharge. Mucous membranes pink and moist. NECK: Trachea midline. No JVD. CARDIOVASCULAR: Regular rate and rhythm. 1/6 holosystolic murmur noted at the apex RESPIRATORY: No accessory muscle use. Clear to auscultation. Breath sounds equal bilaterally. GASTROINTESTINAL: Abdomen soft, non-tender, nondistended. Hepatic and splenic margins not palpable. MUSCULOSKELETAL: Extremities without clubbing, cyanosis. Trace edema bilaterally NEUROLOGICAL: Awake and alert. No obvious cranial nerve deficits. Motor grossly within normal limits. Five out of 5 muscle strength in the arms and legs. Normal speech. PSYCHIATRIC: Appropriate mood and affect; insight and judgment normal. Laboratory Laboratory Tests Test 11/06/17 12:45 White Blood Count 10.1 TH/MM3 Red Blood Count 5.46 MIL/MM3 Hemoglobin 17.6 GM/DL Hematocrit 52.0 % Mean Corpuscular Volume 95.2 FL Mean Corpuscular Hemoglobin 32.2 PG Mean Corpuscular Hemoglobin Concent 33.9 % Red Cell Distribution Width 13.2 % Platelet Count 189 TH/MM3 Mean Platelet Volume 10.1 FL Neutrophils (%) (Auto) 79.6 % Lymphocytes (%) (Auto) 10.6 % Monocytes (%) (Auto) 9.1 % Eosinophils (%) (Auto) 0.4 % Basophils (%) (Auto) 0.3 % Neutrophils # (Auto) 8.0 TH/MM3 Lymphocytes # (Auto) 1.1 TH/MM3 Monocytes # (Auto) 0.9 TH/MM3 Eosinophils # (Auto) 0.0 TH/MM3 Basophils # (Auto) 0.0 TH/MM3 CBC Comment DIFF FINAL Differential Comment Blood Urea Nitrogen 15 MG/DL Creatinine 1.07 MG/DL Random Glucose 147 MG/DL Total Protein 6.8 GM/DL Albumin 3.2 GM/DL Calcium Level 8.7 MG/DL Phosphorus Level 3.1 MG/DL Magnesium Level 2.1 MG/DL Alkaline Phosphatase 101 U/L Aspartate Amino Transf (AST/SGOT) 29 U/L Alanine Aminotransferase (ALT/SGPT) 25 U/L Total Bilirubin 1.1 MG/DL Sodium Level 133 MEQ/L Potassium Level 5.2 MEQ/L Chloride Level 101 MEQ/L Carbon Dioxide Level 28.9 MEQ/L Anion Gap 3 MEQ/L Estimat Glomerular Filtration Rate 49 ML/MIN Lactic Acid Level 1.4 mmol/L Troponin I LESS THAN 0.02 NG/ML Assessment and Plan Problem List: (1) Confusion ICD Codes: R41.0 - Disorientation, unspecified (2) Bradycardia ICD Codes: R00.1 - Bradycardia, unspecified Status: Acute (3) HTN (hypertension) ICD Codes: I10 - Essential (primary) hypertension Status: Acute Assessment and Plan 1. Possible neurological event with encephalopathy of unknown cause. Event while waiting for MRI, not a syncopal event, would consider further neurologic cause 11/06/17 Second similar event, this time she was on a monitor with stable BP and no episodes of AV block or bradycardia, incontinent of urine.... agree with primary team discussing with neurology for a possible cause. 2. Mild bradycardia Appears asymptomatic 3. Short run of PAC on telemetry. 4. History of hypertension. 5. Afib New diagnosis Would not place on anticoagulation at this time as patient is extremely unsteady on her feet Discussed benefits and risks with patient, she has concerns with falls and agrees to no anticoagulation If in the future she is more steady on her feet, then this should be reassessed 6. Follow up with Dr. Moore 7. EF 55-60%, trace MR/TR 8. Will see PRN, call with questions Kyree James DO Nov 06, 2017 14:23
--- NOTE | 2017-11-06 17:10 | MG ---
cc: KESHAWN TEJADA MD Lab No: Date:11/06/2017 Age: Sex: F Race: DATE OF 1935 HISTORY: History of hypertension, depression, memory loss, hypothyroidism, anxiety, gastroesophageal reflux disease, diverticulitis alcohol use arthritis, dementia episodes of unresponsiveness with urinary, incontinence. MEDICATIONS 1. Lovenox. 1. Aspirin. 2. Aricept. 3. Procardia. 4. Celexa. 5. Synthroid. DESCRIPTION This is a follow up electroencephalogram. The background activity is 9-10 Hz alpha superimposed by excess beta activity. There is excessive movement artifact. Hyperventilation was omitted. Vesiculation did not elicit driving response. There were no electrographic seizures or epileptiform discharges noted. No electrographic seizures. There is some central sharp like activity noted. INTERPRETATION This is awake, drowsy EEG, there is sharp like activity in the central region that may be epileptogenic in nature. There is no ictal activity or electrographic seizures. Clinical correlation is recommended. MD STEFAN Patrick/eula /3:05 PM /5:01 PM MTDNhung
[2017-11-06] MEDS: ENOXAPARIN SODIUM 40 MG/0.4 ML SYRINGE SQ SCH (18:21)
[2017-11-06] MEDS: SODIUM CHLOR 0.9% 1000 ML INJ 1,000 ML IV SCH (19:22)
[2017-11-06] MEDS: DONEPEZIL HCL 5 MG TAB PO SCH (20:30)
[2017-11-07] VITALS (9 sets, daily range): BP systolic 135–183; BP diastolic 65–96; PULSE 63–98; RESP 16–19; TEMP 97–98.5; O2SAT 93–95
[2017-11-07] MEDS: LEVOTHYROXINE SODIUM 88 MCG TAB PO SCH (06:00)
[2017-11-07] MEDS: INSULIN ASPART SUPPLEMENTAL SCALE SQ SCH ×2 (08:00→12:00)
[2017-11-07] MEDS: SODIUM CHLORIDE 0.9% FLUSH 10 ML FLUSH IV FLUSH SCH ×2 (08:22→20:34)
[2017-11-07] MEDS: ASPIRIN EC 81 MG TABEC PO SCH (08:23)
[2017-11-07] MEDS: CITALOPRAM HYDROBROMIDE 40 MG TAB PO SCH (08:23)
[2017-11-07] MEDS: DOCUSATE SODIUM 50 MG/SENNA 8.6 MG TAB PO SCH ×2 (08:23→20:34)
[2017-11-07] MEDS: CYANOCOBALAMIN 1,000 MCG TAB PO SCH (08:23)
[2017-11-07] MEDS: NIFEdipine 20 MG CAP PO SCH ×2 (08:24→20:34)
[2017-11-07] MEDS: ATORVASTATIN 10 MG TAB PO SCH (08:24)
[2017-11-07 08:57] LABS: AUTOMATED NEUTROPHIL # 5.5 TH/MM3 (1.8-7.7); BASOPHIL # 0.1 TH/MM3 (0-0.2); BASOPHIL % 0.7 % (0.0-2.0); EOSINOPHIL % 0.5 % (0.0-4.0); HEMATOCRIT 52.1 % (35.0-46.0); HEMO FLAGS DIFF FINAL; LYMPH % 17.4 % (9.0-44.0); LYMPHOCYTE # 1.4 TH/MM3 (1.0-4.8); MEAN CELL VOLUME 94.5 FL (80.0-100.0); MEAN CORPUSCULAR HEMOGLOBIN 31.7 PG (27.0-34.0); MEAN CORPUSCULAR HGB CONC 33.5 % (32.0-36.0); NEUT % 70.4 % (16.0-70.0); PLATELET COUNT 191 TH/MM3 (150-450); RED BLOOD COUNT 5.51 MIL/MM3 (4.00-5.30); RED CELL DISTRIBUTION WIDTH 13.1 % (11.6-17.2); WHITE BLOOD COUNT 7.8 TH/MM3 (4.0-11.0)
[2017-11-07 09:22] LABS: BICARBONATE 22.5 MEQ/L (21.0-32.0); POTASSIUM 3.8 MEQ/L (3.5-5.1)
--- NOTE | 2017-11-07 10:01 | HHI.PR ---
Subjective Remarks in no acute distress. still feeling weak. d/w the RN and no acute issues over night. Objective Vitals Vital Signs Date Time Temp Pulse Resp B/P (MAP) Pulse Ox O2 Delivery O2 Flow Rate FiO2 11/07/17 09:20 64 11/07/17 08:00 98.1 67 18 183/94 (123) 94 11/07/17 06:45 97.0 63 18 140/69 (92) 93 11/07/17 04:08 98 11/07/17 00:46 68 11/07/17 00:40 98.1 65 19 135/65 (88) 93 11/06/17 22:30 98.8 62 17 139/71 (93) 93 11/06/17 19:47 98.2 80 16 188/83 (118) 96 11/06/17 19:11 98.2 67 20 185/90 (121) 96 11/06/17 19:08 62 11/06/17 16:00 97.6 65 18 141/80 (100) 97 11/06/17 12:45 133 11/06/17 11:23 97.3 124 20 127/56 (79) 97 I/O 11/06/17 11/06/17 11/06/17 11/07/17 11/07/17 11/07/17 06:59 14:59 22:59 06:59 14:59 22:59 Intake Total 400 ml 250 ml Output Total 100 ml Balance 400 ml 150 ml Intake Oral 400 ml 250 ml Output Urine Total 100 ml # Voids 6 6 # Bowel Movements 0 0 Result Diagram: 11/07/17 0750 11/07/17 0750 Imaging Last Impressions Head Magnetic Resonance Angiography 11/03/17 0000 Signed Impressions: Service Date/Time: Friday, November 03, 2017 12:48 - CONCLUSION: Negative for major branch vessel occlusion or aneurysm. Julian Hawkins MD FACR Carotid Artery Ultrasound 11/03/17 0000 Signed Impressions: Service Date/Time: Friday, November 03, 2017 08:45 - CONCLUSION: Negative examination for a hemodynamically significant carotid stenosis. . Julian Hawkins MD FACR Brain MRI 11/03/17 0000 Signed Impressions: Service Date/Time: Friday, November 03, 2017 12:48 - CONCLUSION: Atrophy with marked periventricular white matter changes, negative for acute ischemic event. Julian Hawkins MD FACR Head CT 11/02/172010 Signed Impressions: Service Date/Time: Thursday, November 02, 2017 20:30 - CONCLUSION: 1. Moderate to severe periventricular and subcortical white matter small vessel ischemic changes bilaterally. 2. No acute infarct, acute hemorrhage, mass effect or extra-axial fluid collections. Jonathan Castrejon MD Chest X-Ray 11/02/172010 Signed Impressions: Service Date/Time: Thursday, November 02, 2017 21:09 - CONCLUSION: Bibasilar streakiness consistent with atelectasis and/or scarring. Jonathan Castrejon MD Objective Remarks GENERAL: This is a well-nourished, well-developed patient, in no apparent distress. CARDIOVASCULAR: Regular rate and regular rhythm without murmurs, gallops, or rubs. RESPIRATORY: Clear to auscultation. Breath sounds equal bilaterally. No wheezes , rales, or rhonchi. GASTROINTESTINAL: Abdomen soft, non-tender, nondistended. Normal, active bowel sounds MUSCULOSKELETAL: Extremities without clubbing, cyanosis, or edema. NEURO: Alert & Oriented x4 to person, place, time, situation. Moves all ext x4 Medications and IVs Current Medications Sodium Chloride (NS Flush) 2 ml UNSCH PRN IV FLUSH FLUSH AFTER USING IV ACCESS ; Start 11/02/17 at 20:15; Stop 11/02/17 at 22:18; Status DC Sodium Chloride (NS Flush) 2 ml BID IV FLUSH Last administered on 11/06/17 09: 14; Start 11/03/17 at 09:00 Sodium Chloride (NS Flush) 2 ml UNSCH PRN IV FLUSH FLUSH AFTER USING IV ACCESS ; Start 11/02/17 at 22:15 Enalaprilat (Vasotec Inj) 2.5 mg Q6H PRN IV PUSH bp>200/100 Last administered on 11/03/17 00:10; Start 11/03/17 at 00:00 Citalopram Hydrobromide (CeleXA) 40 mg DAILY PO Last administered on 11/07/17 08:23; Start 11/03/17 at 09:00 Donepezil HCl (Aricept) 5 mg HS PO Last administered on 11/06/17 20:30; Start 11/03/17 at 21:00 Levothyroxine Sodium (Synthroid) 88 mcg DAILY@0600 PO Last administered on 11/07 06:00; Start 11/03/17 at 06:00 Pneumococcal Polyvalent Vaccine (Pneumovax-23 Inj) 25 mcg ONCE ONCE IM Last administered on 11/04/17 09:55; Start 11/04/17 at 10:00; Stop 11/04/17 at 10:01 ; Status DC Influenza Virus Vaccine (Flu (Quadrivalent) Vaccine Inj) 0.5 ml ONCE ONCE IM Last administered on 11/04/17 09:54; Start 11/04/17 at 10:00; Stop 11/04/17 at 10:01; Status DC Dextrose (D50w (Vial) Inj) 50 ml UNSCH PRN IV PUSH HYPOGLYCEMIA-SEE COMMENTS; Start 11/03/17 at 11:30 Glucagon (Glucagon Inj) 1 mg UNSCH PRN OTHER HYPOGLYCEMIA-SEE COMMENTS; Start 11/03/17 at 11:30 Insulin Aspart (NovoLOG SUPPLEMENTAL SCALE) 1 ACHS SLIDING SCALE SQ ; Start at 12:00 Nifedipine (Procardia) 60 mg BID PO Last administered on 11/07/17 08:24; Start 11/03/17 at 21:00 Atorvastatin Calcium (Lipitor) 10 mg ONCE ONCE PO Last administered on 13:42; Start 11/03/17 at 11:30; Stop 11/03/17 at 11:31; Status DC Atorvastatin Calcium (Lipitor) 10 mg DAILY PO Last administered on 11/07/17 08 :24; Start 11/04/17 at 09:00 Aspirin (Ecotrin Ec) 81 mg ONCE ONCE PO Last administered on 11/03/17 13:42; Start 11/03/17 at 11:30; Stop 11/03/17 at 11:31; Status DC Aspirin (Ecotrin Ec) 81 mg DAILY PO Last administered on 11/07/17 08:23; Start 11/04/17 at 09:00 Senna/Docusate Sodium (Dia-Colace) 1 tab BID PO Last administered on 08:23; Start 11/04/17 at 21:00 Enoxaparin Sodium (Lovenox Inj) 40 mg Q24H SQ Last administered on 11/06/17 18 :21; Start 11/04/17 at 16:00 Cyanocobalamin (Vitamin B12 Inj) 1,000 mcg ONCE ONCE IM Last administered on 11/04/17 18:18; Start 11/04/17 at 17:00; Stop 11/04/17 at 17:01; Status DC Cyanocobalamin (Vitamin B12) 1,000 mcg DAILY PO Last administered on 11/07/17 08:23; Start 11/05/17 at 09:00 Sodium Chloride 1,000 ml @ 42 mls/hr [id number] IV Last administered on 19:22; Start 11/06/17 at 18:00 A/P Problem List: (1) Noncompliance w/medication treatment due to intermit use of medication ICD Code: Z91.14 - Patient's other noncompliance with medication regimen Status: Acute (2) Bradycardia ICD Code: R00.1 - Bradycardia, unspecified Status: Acute (3) TIA (transient ischemic attack) ICD Code: G45.9 - Transient cerebral ischemic attack, unspecified Status: Acute (4) Syncope ICD Code: R55 - Syncope and collapse Status: Acute (5) HTN (hypertension) ICD Code: I10 - Essential (primary) hypertension Status: Acute Assessment and Plan TIA - Neurology following, appreciate assistance. - CT of the head moderate to severe periventricular and subcortical white matter small vessel ischemic changes, no e/o acute infarct or hemorrhage - Carotid ultrasound negative - MRA negative - MRI negative for acute ischemic event - RPR negative. B12 281, low end of normal, B12 1000mcg given. - Continue on statin therapy - ASA 81mg daily - Continue with PT/OT - PT is recommending inpatient rehabilitation. Case management consulted to assist with discharge planning. Syncopal episode ?Seizure activity - Patient with episode while awaiting to get MRI in the holding area, patient slumped over staring off into the distance not responding. - Cardiology consulted, appreciate assistance. Telemetry showing likely episodes of A. fib. previously Discussed with Dr. James who recommended against starting anticoagulation at this time secondary to patient's unsteadiness. Recommended baby aspirin daily for now and will reassess in the future. Follow-up with Dr. Moore. - Echo done and EF 55-60%, trace MR/TR - (+)orthostatics. Counseled patient on slow transitions with postural changes. LINDA funes upon standing. -initial EEG done showing no seizure activity -repeated EEG with possible seizure activity- - 11/06 patient found unresponsive by PREMIUM CANCELLATION CLERK, fluctuating HR 120s to 70s, (+) urinary incontinence, did not bite tongue. Responded to sternal rub after several minutes. Patient with no recollection of events. No confusion following episode, oriented. -neurology reconsulted. Hypertension - uncontrolled at admission with history of medication noncompliance - Improved - Continue on Procardia 60 mg twice a day - Continue to monitor BP and adjust treatment accordingly Dementia - Continue on Aricept - seen in consultation by ST pma arce, scored . THIS PATIENT IS CURRENTLY DEMONSTRATING DEFICITS OF ORIENTATION, MEMORY, PROBLEM SOLVING, AND VERBAL PROCESSING. - Patient is unsafe discharge as she lives alone at home. Case management assisting with discharge planning. Hypothyroidism - continue on home dose of Synthroid - TSH within normal limits DVT prophylaxis - patient is on Lovenox Discharge Planning awaiting neurology reevaluation- Problem Qualifiers (1) TIA (transient ischemic attack): Qualified Codes: G45.9 - Transient cerebral ischemic attack, unspecified Ghanshyam García MD Nov 07, 2017 10:01
[2017-11-07] MEDS: ENOXAPARIN SODIUM 40 MG/0.4 ML SYRINGE SQ SCH (16:28)
[2017-11-07] MEDS: SODIUM CHLOR 0.9% 1000 ML INJ 1,000 ML IV SCH (17:49)
[2017-11-07] MEDS: DONEPEZIL HCL 5 MG TAB PO SCH (20:34)
--- NOTE | 2017-11-07 21:27 | HHI.PR ---
Review/Management Diagnosis Dementia Encephalopathy Syncopal episode Positive orthostasis Plan - Neuro checks Q4h - Follow up EEG next am - No indication for AED at this time - Aricept 5mg nightly - Continue supportive medical therapy Diagnosis/Plan: Subjective Subjective Comments Requested to follow up for Dr. Moulton over the weekend Intermittent confusion at a base line cognitive decline/dementia EEG with some evidence of central sharp like activity Patient with no new complaints No family at bed side Active Medications Current Medications Medications (Trade) Dose Ordered Sig/Paresh Route Start Time Stop Time Status Last Admin (NS Flush) 2 ml BID IV FLUSH 11/03/17 09:00 11/07/17 20:34 (NS Flush) 2 ml UNSCH PRN IV FLUSH 11/02/17 22:15 (Vasotec Inj) 2.5 mg Q6H PRN IV PUSH 11/03/17 00:00 11/03/17 00:10 (CeleXA) 40 mg DAILY PO 11/03/17 09:00 11/07/17 08:23 (Aricept) 5 mg HS PO 11/03/17 21:00 11/07/17 20:34 (Synthroid) 88 mcg DAILY@0600 PO 11/03/17 06:00 11/07/17 06:00 (Procardia) 60 mg BID PO 11/03/17 21:00 11/07/17 20:34 (Lipitor) 10 mg DAILY PO 11/04/17 09:00 11/07/17 08:24 (Ecotrin Ec) 81 mg DAILY PO 11/04/17 09:00 11/07/17 08:23 (Dia-Colace) 1 tab BID PO 11/04/17 21:00 11/07/17 20:34 (Lovenox Inj) 40 mg Q24H SQ 11/04/17 16:00 11/07/17 16:28 (Vitamin B12) 1,000 mcg DAILY PO 11/05/17 09:00 11/07/17 08:23 Sodium Chloride 1,000 ml @ 42 mls/hr [id number] IV 11/06/17 18:00 11/06/17 19:22 Allergies Allergies Coded Allergies No Known Allergies (Verified04/08/15) Review of Systems All other ROS: ROS reviewed as documented in chart Exam I&O / VS 11/07/17 11/07/17 11/08/17 14:59 22:59 06:59 Intake Total 480 ml 150 ml Balance 480 ml 150 ml Intake Oral 480 ml IV Total 150 ml # Voids 5 # Bowel Movements 0 Vital Signs Date Time Temp Pulse Resp B/P (MAP) Pulse Ox O2 Delivery O2 Flow Rate FiO2 11/07/17 16:00 98.5 68 18 149/82 (104) 95 11/07/17 12:00 97.7 72 16 180/96 (124) 94 11/07/17 12:00 71 11/07/17 09:20 64 11/07/17 08:00 98.1 67 18 183/94 (123) 94 11/07/17 06:45 97.0 63 18 140/69 (92) 93 11/07/17 04:08 98 11/07/17 00:46 68 11/07/17 00:40 98.1 65 19 135/65 (88) 93 11/06/17 22:30 98.8 62 17 139/71 (93) 93 General: Alert and Oriented, No acute distress Eye: PERRL, Normal conjuctiva Respiratory: Non-labored respirations Cardiology: Normal rate, No murmur Neurologic: Alert, Normal motor, Normal DTR's, Other (oriented to person, place , not time, normal immediate recall, no dysphasia, mild b/l fine action tremor) Objective Micro and Labs Laboratory Tests Test 11/07/17 07:50 White Blood Count 7.8 Red Blood Count 5.51 Hemoglobin 17.5 Hematocrit 52.1 Mean Corpuscular Volume 94.5 Mean Corpuscular Hemoglobin 31.7 Mean Corpuscular Hemoglobin Concent 33.5 Red Cell Distribution Width 13.1 Platelet Count 191 Mean Platelet Volume 10.3 Neutrophils (%) (Auto) 70.4 Lymphocytes (%) (Auto) 17.4 Monocytes (%) (Auto) 11.0 Eosinophils (%) (Auto) 0.5 Basophils (%) (Auto) 0.7 Neutrophils # (Auto) 5.5 Lymphocytes # (Auto) 1.4 Monocytes # (Auto) 0.9 Eosinophils # (Auto) 0.0 Basophils # (Auto) 0.1 CBC Comment DIFF FINAL Differential Comment Blood Urea Nitrogen 12 Creatinine 0.73 Random Glucose 86 Calcium Level 8.1 Sodium Level 134 Potassium Level 3.8 Chloride Level 103 Carbon Dioxide Level 22.5 Anion Gap 9 Estimat Glomerular Filtration Rate 77 Tabitha Vickers MD Nov 07, 2017 21:27
[2017-11-08] VITALS (10 sets, daily range): BP systolic 132–179; BP diastolic 66–89; PULSE 61–89; RESP 18; TEMP 96.7–98.6; O2SAT 95–96
[2017-11-08] MEDS: LEVOTHYROXINE SODIUM 88 MCG TAB PO SCH (06:00)
[2017-11-08] MEDS: SODIUM CHLORIDE 0.9% FLUSH 10 ML FLUSH IV FLUSH SCH ×2 (08:44→20:54)
[2017-11-08] MEDS: ASPIRIN EC 81 MG TABEC PO SCH (08:46)
[2017-11-08] MEDS: CYANOCOBALAMIN 1,000 MCG TAB PO SCH (08:46)
[2017-11-08] MEDS: CITALOPRAM HYDROBROMIDE 40 MG TAB PO SCH (08:46)
[2017-11-08] MEDS: ATORVASTATIN 10 MG TAB PO SCH (08:46)
[2017-11-08] MEDS: NIFEdipine 20 MG CAP PO SCH ×2 (08:46→20:52)
[2017-11-08] MEDS: DOCUSATE SODIUM 50 MG/SENNA 8.6 MG TAB PO SCH ×2 (08:46→20:54)
--- NOTE | 2017-11-08 09:44 | HHI.PR ---
Subjective Remarks in no acute distress. denies pain. afebrile. Objective Vitals Vital Signs Date Time Temp Pulse Resp B/P (MAP) Pulse Ox O2 Delivery O2 Flow Rate FiO2 11/08/17 08:00 98.1 62 18 152/86 (108) 95 11/08/17 08:00 64 11/08/17 06:07 64 164/87 (112) 11/08/17 05:04 98.1 68 18 179/89 (119) 96 11/08/17 04:15 86 11/08/17 01:16 97.6 61 18 168/81 (110) 95 11/08/17 01:15 89 11/07/17 20:50 73 11/07/17 16:00 98.5 68 18 149/82 (104) 95 11/07/17 12:00 97.7 72 16 180/96 (124) 94 11/07/17 12:00 71 I/O 11/07/17 11/07/17 11/07/17 11/08/17 11/08/17 11/08/17 07:00 15:00 23:00 07:00 15:00 23:00 Intake Total 250 ml 480 ml 150 ml Output Total 100 ml Balance 150 ml 480 ml 150 ml Intake Oral 250 ml 480 ml IV Total 150 ml Output Urine Total 100 ml # Voids 6 5 2 # Bowel Movements 0 0 Result Diagram: 11/07/17 0750 11/07/17 0750 Imaging Last Impressions Head Magnetic Resonance Angiography 11/03/17 0000 Signed Impressions: Service Date/Time: Friday, November 03, 2017 12:48 - CONCLUSION: Negative for major branch vessel occlusion or aneurysm. Julian Hawkins MD FACR Carotid Artery Ultrasound 11/03/17 Signed Impressions: Service Date/Time: Friday, November 03, 2017 08:45 - CONCLUSION: Negative examination for a hemodynamically significant carotid stenosis. . Julian Hawkins MD FACR Brain MRI 11/03/17 Signed Impressions: Service Date/Time: Friday, November 03, 2017 12:48 - CONCLUSION: Atrophy with marked periventricular white matter changes, negative for acute ischemic event. Julian Hawkins MD FACR Head CT 11/02/172010 Signed Impressions: Service Date/Time: Thursday, November 02, 2017 20:30 - CONCLUSION: 1. Moderate to severe periventricular and subcortical white matter small vessel ischemic changes bilaterally. 2. No acute infarct, acute hemorrhage, mass effect or extra-axial fluid collections. Jonathan Castrejon MD Chest X-Ray 11/02/172010 Signed Impressions: Service Date/Time: Thursday, November 02, 2017 21:09 - CONCLUSION: Bibasilar streakiness consistent with atelectasis and/or scarring. Jonathan Castrejon MD Objective Remarks GENERAL: This is a well-nourished, well-developed patient, in no apparent distress. CARDIOVASCULAR: Regular rate and regular rhythm without murmurs, gallops, or rubs. RESPIRATORY: Clear to auscultation. Breath sounds equal bilaterally. No wheezes , rales, or rhonchi. GASTROINTESTINAL: Abdomen soft, non-tender, nondistended. Normal, active bowel sounds MUSCULOSKELETAL: Extremities without clubbing, cyanosis, or edema. NEURO: awake and alert. Medications and IVs Current Medications Sodium Chloride (NS Flush) 2 ml UNSCH PRN IV FLUSH FLUSH AFTER USING IV ACCESS ; Start 11/02/17 at 20:15; Stop 11/02/17 at 22:18; Status DC Sodium Chloride (NS Flush) 2 ml BID IV FLUSH Last administered on 11/07/17 20: 34; Start 11/03/17 at 09:00 Sodium Chloride (NS Flush) 2 ml UNSCH PRN IV FLUSH FLUSH AFTER USING IV ACCESS ; Start 11/02/17 at 22:15 Enalaprilat (Vasotec Inj) 2.5 mg Q6H PRN IV PUSH bp>200/100 Last administered on 11/03/17 00:10; Start 11/03/17 at 00:00 Citalopram Hydrobromide (CeleXA) 40 mg DAILY PO Last administered on 08:46; Start 11/03/17 at 09:00 Donepezil HCl (Aricept) 5 mg HS PO Last administered on 11/07/17 20:34; Start 11/03/17 at 21:00 Levothyroxine Sodium (Synthroid) 88 mcg DAILY@0600 PO Last administered on 06:00; Start 11/03/17 at 06:00 Pneumococcal Polyvalent Vaccine (Pneumovax-23 Inj) 25 mcg ONCE ONCE IM Last administered on 11/04/17 09:55; Start 11/04/17 at 10:00; Stop 11/04/17 at 10:01 ; Status DC Influenza Virus Vaccine (Flu (Quadrivalent) Vaccine Inj) 0.5 ml ONCE ONCE IM Last administered on 11/04/17 09:54; Start 11/04/17 at 10:00; Stop 11/04/17 at 10:01; Status DC Dextrose (D50w (Vial) Inj) 50 ml UNSCH PRN IV PUSH HYPOGLYCEMIA-SEE COMMENTS; Start 11/03/17 at 11:30; Stop 11/07/17 at 14:16; Status DC Glucagon (Glucagon Inj) 1 mg UNSCH PRN OTHER HYPOGLYCEMIA-SEE COMMENTS; Start 11/03/17 at 11:30; Stop 11/07/17 at 14:16; Status DC Insulin Aspart (NovoLOG SUPPLEMENTAL SCALE) 1 ACHS SLIDING SCALE SQ ; Start at 12:00; Stop 11/07/17 at 14:16; Status DC Nifedipine (Procardia) 60 mg BID PO Last administered on 11/08/17 08:46; Start 11/03/17 at 21:00 Atorvastatin Calcium (Lipitor) 10 mg ONCE ONCE PO Last administered on 13:42; Start 11/03/17 at 11:30; Stop 11/03/17 at 11:31; Status DC Atorvastatin Calcium (Lipitor) 10 mg DAILY PO Last administered on 11/08/17 08:46; Start 11/04/17 at 09:00 Aspirin (Ecotrin Ec) 81 mg ONCE ONCE PO Last administered on 11/03/17 13:42; Start 11/03/17 at 11:30; Stop 11/03/17 at 11:31; Status DC Aspirin (Ecotrin Ec) 81 mg DAILY PO Last administered on 11/08/17 08:46; Start 11/04/17 at 09:00 Senna/Docusate Sodium (Dia-Colace) 1 tab BID PO Last administered on 08:46; Start 11/04/17 at 21:00 Enoxaparin Sodium (Lovenox Inj) 40 mg Q24H SQ Last administered on 11/07/17 16 :28; Start 11/04/17 at 16:00 Cyanocobalamin (Vitamin B12 Inj) 1,000 mcg ONCE ONCE IM Last administered on 11/04/17 18:18; Start 11/04/17 at 17:00; Stop 11/04/17 at 17:01; Status DC Cyanocobalamin (Vitamin B12) 1,000 mcg DAILY PO Last administered on 08:46; Start 11/05/17 at 09:00 Sodium Chloride 1,000 ml @ 42 mls/hr [id number] IV Last administered on 19:22; Start 11/06/17 at 18:00 A/P Problem List: (1) Noncompliance w/medication treatment due to intermit use of medication ICD Code: Z91.14 - Patient's other noncompliance with medication regimen Status: Acute (2) Bradycardia ICD Code: R00.1 - Bradycardia, unspecified Status: Acute (3) TIA (transient ischemic attack) ICD Code: G45.9 - Transient cerebral ischemic attack, unspecified Status: Acute (4) Syncope ICD Code: R55 - Syncope and collapse Status: Acute (5) HTN (hypertension) ICD Code: I10 - Essential (primary) hypertension Status: Acute Assessment and Plan A/P TIA - Neurology following, appreciate assistance. - CT of the head moderate to severe periventricular and subcortical white matter small vessel ischemic changes, no e/o acute infarct or hemorrhage - Carotid ultrasound negative - MRA negative - MRI negative for acute ischemic event - RPR negative. B12 281, low end of normal, B12 1000mcg given. - Continue on statin therapy - ASA 81mg daily - Continue with PT/OT - PT is recommending inpatient rehabilitation. Case management consulted to assist with discharge planning. Syncopal episode ?Seizure activity - Patient with episode while awaiting to get MRI in the holding area, patient slumped over staring off into the distance not responding. - Cardiology consulted, appreciate assistance. Telemetry showing likely episodes of A. fib. previously Discussed with Dr. James who recommended against starting anticoagulation at this time secondary to patient's unsteadiness. Recommended baby aspirin daily for now and will reassess in the future. Follow-up with Dr. Moore. - Echo done and EF 55-60%, trace MR/TR - (+)orthostatics. Counseled patient on slow transitions with postural changes. LINDA funes upon standing. -initial EEG done showing no seizure activity -repeated EEG with possible seizure activity- - 11/06 patient found unresponsive by MANAGER ETL, fluctuating HR 120s to 70s, (+) urinary incontinence, did not bite tongue. Responded to sternal rub after several minutes. -neurology reconsulted; EEG to be repeated today; no antiepileptics at this time. -started on Aricept. Hypertension - uncontrolled at admission with history of medication noncompliance - overall Improved - Continue on Procardia 60 mg twice a day - Continue to monitor BP and adjust treatment accordingly Dementia - Continue on Aricept - seen in consultation by ST pam arce, scored 16/30. THIS PATIENT IS CURRENTLY DEMONSTRATING DEFICITS OF ORIENTATION, MEMORY, PROBLEM SOLVING, AND VERBAL PROCESSING. - Patient is unsafe discharge as she lives alone at home. Case management assisting with discharge planning. Hypothyroidism - continue on home dose of Synthroid - TSH within normal limits DVT prophylaxis - patient is on Lovenox Discharge Planning possible discharge early this week- pending repeated EEG and neurology follow-up / clearance. needs SNF placement. Problem Qualifiers (1) TIA (transient ischemic attack): Qualified Codes: G45.9 - Transient cerebral ischemic attack, unspecified Ghanshyam García MD Nov 08, 2017 09:44
--- NOTE | 2017-11-08 14:28 | HHI.PR ---
Review/Management Diagnosis Dementia Encephalopathy Syncopal episode Positive orthostasis Plan - Patient is stable - Neurologic exam is non focal - Neurologic investigation did not reveal an evidence of an acute neurologic abnormality - No indication for AED at this time - Aricept 5mg nightly - Continue supportive medical therapy - Patient need placement - Follow up with Dr. Moulton for an outpatient evaluation of cognitive decline/ dementia - Diagnosis/Plan: Subjective Subjective Comments No acute events reported Follow up EEG with no evidence of an ictal activity or epileptiform discharges Patient lays comfortable with no new complaints Covering neurologic consults for Dr. Moulton over the weekend Active Medications Current Medications Medications (Trade) Dose Ordered Sig/Paresh Route Start Time Stop Time Status Last Admin (NS Flush) 2 ml BID IV FLUSH 11/03/17 09:00 11/07/17 20:34 (NS Flush) 2 ml UNSCH PRN IV FLUSH 11/02/17 22:15 (Vasotec Inj) 2.5 mg Q6H PRN IV PUSH 11/03/17 00:00 11/03/17 00:10 (CeleXA) 40 mg DAILY PO 11/03/17 09:00 11/08/17 08:46 (Aricept) 5 mg HS PO 11/03/17 21:00 11/07/17 20:34 (Synthroid) 88 mcg DAILY@0600 PO 11/03/17 06:00 11/08/17 06:00 (Procardia) 60 mg BID PO 11/03/17 21:00 11/08/17 08:46 (Lipitor) 10 mg DAILY PO 11/04/17 09:00 11/08/17 08:46 (Ecotrin Ec) 81 mg DAILY PO 11/04/17 09:00 11/08/17 08:46 (Dia-Colace) 1 tab BID PO 11/04/17 21:00 11/08/17 08:46 (Lovenox Inj) 40 mg Q24H SQ 11/04/17 16:00 11/07/17 16:28 (Vitamin B12) 1,000 mcg DAILY PO 11/05/17 09:00 11/08/17 08:46 Sodium Chloride 1,000 ml @ 42 mls/hr [id number] IV 11/06/17 18:00 Future Hold 11/06/17 19:22 Allergies Allergies Coded Allergies No Known Allergies (Verified04/08/15) Review of Systems All other ROS: ROS reviewed as documented in chart Exam I&O / VS 11/08/17 11/08/17 11/09/17 15:00 23:00 07:00 Intake Total 100 ml Balance 100 ml IV Total 100 ml Vital Signs Date Time Temp Pulse Resp B/P (MAP) Pulse Ox O2 Delivery O2 Flow Rate FiO2 11/08/17 12:00 96.7 68 18 165/82 (109) 95 11/08/17 12:00 62 11/08/17 08:00 98.1 62 18 152/86 (108) 95 11/08/17 08:00 64 11/08/17 06:07 64 164/87 (112) 11/08/17 05:04 98.1 68 18 179/89 (119) 96 11/08/17 04:15 86 11/08/17 01:16 97.6 61 18 168/81 (110) 95 11/08/17 01:15 89 11/07/17 20:50 73 11/07/17 16:00 98.5 68 18 149/82 (104) 95 General: Alert and Oriented, No acute distress Eye: PERRL, Normal conjuctiva Respiratory: Non-labored respirations Cardiology: Normal rate, No murmur Neurologic: Alert, Normal motor, Normal DTR's, Other (oriented to person, place , not time, normal immediate recall, no dysphasia, mild b/l fine action tremor) Tabitha Vickers MD Nov 08, 2017 14:28
[2017-11-08] MEDS: ENOXAPARIN SODIUM 40 MG/0.4 ML SYRINGE SQ SCH (16:38)
[2017-11-08] MEDS: DONEPEZIL HCL 5 MG TAB PO SCH (20:52)
[2017-11-09 01:01] VITALS: BP 133/65; PULSE 60; RESP 18; TEMP 97.7; O2SAT 95
--- NOTE | 2017-11-09 05:23 | MG ---
cc: KESHAWN TEJADA Lab No: Date: 11/08/2017 Age: 81 Sex: F Race: DATE OF 1935 MEDICAL HISTORY 1. Episode of unresponsiveness with urinary incontinence. 2. History of hypertension. 3. Depression. 4. Memory loss. 5. Anxiety. 6. GERD. 7. Hypothyroidism. 8. Diverticulitis. 9. Alcohol use. 10. Arthritis. 11. Dementia. MEDICATIONS 1. Lipitor. 2. Aspirin. 3. Aricept. 4. Procardia. 5. Celexa. 6. Synthroid. NOTE This is a follow-up EEG to the EEG on 11/06/2017. The previous EEG revealed sharp-like activity in the central region that may be epileptogenic. DESCRIPTION The background activity is 8-9 Hz alpha located posteriorly with posterior to anterior gradient. There is excessive movement artifact. During the EEG recording the background the alpha rhythm was replaced by theta activity. During the recording the alpha rhythm was replaced by theta activity with transition to Stage II sleep with appearance of K-complexes and sleep spindles. Photic stimulation did not elicit a driving response. Hyperventilation was not done. There were no electrographic seizures or epileptiform discharges noted. INTERPRETATION This is a normal awake and sleep EEG. There was excessive, movement artifact. There were no electrographic seizures or epileptiform discharges noted during the recording. Clinical correlation is recommended. MD STEFAN Patrick/JC /9:26 PM /5:09 AM NIKI
[2017-11-09 05:30] VITALS: BP 143/82; PULSE 68; RESP 18; TEMP 97.3; O2SAT 96
[2017-11-09] MEDS: LEVOTHYROXINE SODIUM 88 MCG TAB PO SCH (05:40)
[2017-11-09 08:00] VITALS: BP 134/78; PULSE 57; PULSE 68; RESP 16; TEMP 97.4; O2SAT 96
[2017-11-09] MEDS: NIFEdipine 20 MG CAP PO SCH (08:09)
[2017-11-09] MEDS: CYANOCOBALAMIN 1,000 MCG TAB PO SCH (08:09)
[2017-11-09] MEDS: ASPIRIN EC 81 MG TABEC PO SCH (08:10)
[2017-11-09] MEDS: SODIUM CHLORIDE 0.9% FLUSH 10 ML FLUSH IV FLUSH SCH (08:10)
[2017-11-09] MEDS: ATORVASTATIN 10 MG TAB PO SCH (08:10)
[2017-11-09] MEDS: DOCUSATE SODIUM 50 MG/SENNA 8.6 MG TAB PO SCH (08:10)
[2017-11-09] MEDS: CITALOPRAM HYDROBROMIDE 40 MG TAB PO SCH (08:10)
--- NOTE | 2017-11-09 08:47 | HHI.PR ---
Subjective Remarks in no acute distress. resting comfortably. no new complaints. d/w the RN. Objective Vitals Vital Signs Date Time Temp Pulse Resp B/P (MAP) Pulse Ox O2 Delivery O2 Flow Rate FiO2 11/09/17 05:30 97.3 68 18 143/82 (102) 96 11/09/17 01:01 97.7 60 18 133/65 (87) 95 11/08/17 21:00 83 11/08/17 20:54 98.0 65 18 132/66 (88) 96 11/08/17 16:00 98.6 76 18 174/89 (117) 96 11/08/17 16:00 88 11/08/17 12:00 96.7 68 18 165/82 (109) 95 11/08/17 12:00 62 I/O 11/08/17 11/08/17 11/08/17 11/09/17 11/09/17 11/09/17 07:00 15:00 23:00 07:00 15:00 23:00 Intake Total 580 ml 100 ml Balance 580 ml 100 ml Intake Oral 480 ml IV Total 100 ml 100 ml # Voids 4 # Bowel Movements 1 Result Diagram: 11/07/17 0750 11/07/17 0750 Imaging Last Impressions Head Magnetic Resonance Angiography 11/03/17 0000 Signed Impressions: Service Date/Time: Friday, November 03, 2017 12:48 - CONCLUSION: Negative for major branch vessel occlusion or aneurysm. Julian Hawkins MD FACR Carotid Artery Ultrasound 11/03/17 0000 Signed Impressions: Service Date/Time: Friday, November 03, 2017 08:45 - CONCLUSION: Negative examination for a hemodynamically significant carotid stenosis. . Julian Hawkins MD FACR Brain MRI 11/03/17 0000 Signed Impressions: Service Date/Time: Friday, November 03, 2017 12:48 - CONCLUSION: Atrophy with marked periventricular white matter changes, negative for acute ischemic event. Julian Hawkins MD FACR Head CT 11/02/172010 Signed Impressions: Service Date/Time: Thursday, November 02, 2017 20:30 - CONCLUSION: 1. Moderate to severe periventricular and subcortical white matter small vessel ischemic changes bilaterally. 2. No acute infarct, acute hemorrhage, mass effect or extra-axial fluid collections. Jonathan Castrejon MD Chest X-Ray 11/02/172010 Signed Impressions: Service Date/Time: Thursday, November 02, 2017 21:09 - CONCLUSION: Bibasilar streakiness consistent with atelectasis and/or scarring. Jonathan Castrejon MD Objective Remarks GENERAL: This is a well-nourished, well-developed patient, in no apparent distress. CARDIOVASCULAR: Regular rate and regular rhythm without murmurs, gallops, or rubs. RESPIRATORY: Clear to auscultation. Breath sounds equal bilaterally. No wheezes , rales, or rhonchi. GASTROINTESTINAL: Abdomen soft, non-tender, nondistended. Normal, active bowel sounds MUSCULOSKELETAL: Extremities without clubbing, cyanosis, or edema. NEURO: awake and alert. Medications and IVs Current Medications Sodium Chloride (NS Flush) 2 ml UNSCH PRN IV FLUSH FLUSH AFTER USING IV ACCESS ; Start 11/02/17 at 20:15; Stop 11/02/17 at 22:18; Status DC Sodium Chloride (NS Flush) 2 ml BID IV FLUSH Last administered on 11/09/17 08 :10; Start 11/03/17 at 09:00 Sodium Chloride (NS Flush) 2 ml UNSCH PRN IV FLUSH FLUSH AFTER USING IV ACCESS ; Start 11/02/17 at 22:15 Enalaprilat (Vasotec Inj) 2.5 mg Q6H PRN IV PUSH bp>200/100 Last administered on 11/03/17 00:10; Start 11/03/17 at 00:00 Citalopram Hydrobromide (CeleXA) 40 mg DAILY PO Last administered on 08:10; Start 11/03/17 at 09:00 Donepezil HCl (Aricept) 5 mg HS PO Last administered on 11/08/17 20:52; Start 11/03/17 at 21:00 Levothyroxine Sodium (Synthroid) 88 mcg DAILY@0600 PO Last administered on 05:40; Start 11/03/17 at 06:00 Pneumococcal Polyvalent Vaccine (Pneumovax-23 Inj) 25 mcg ONCE ONCE IM Last administered on 11/04/17 09:55; Start 11/04/17 at 10:00; Stop 11/04/17 at 10:01 ; Status DC Influenza Virus Vaccine (Flu (Quadrivalent) Vaccine Inj) 0.5 ml ONCE ONCE IM Last administered on 11/04/17 09:54; Start 11/04/17 at 10:00; Stop 11/04/17 at 10:01; Status DC Dextrose (D50w (Vial) Inj) 50 ml UNSCH PRN IV PUSH HYPOGLYCEMIA-SEE COMMENTS; Start 11/03/17 at 11:30; Stop 11/07/17 at 14:16; Status DC Glucagon (Glucagon Inj) 1 mg UNSCH PRN OTHER HYPOGLYCEMIA-SEE COMMENTS; Start 11/03/17 at 11:30; Stop 11/07/17 at 14:16; Status DC Insulin Aspart (NovoLOG SUPPLEMENTAL SCALE) 1 ACHS SLIDING SCALE SQ ; Start at 12:00; Stop 11/07/17 at 14:16; Status DC Nifedipine (Procardia) 60 mg BID PO Last administered on 11/09/17 08:09; Start 11/03/17 at 21:00 Atorvastatin Calcium (Lipitor) 10 mg ONCE ONCE PO Last administered on 13:42; Start 11/03/17 at 11:30; Stop 11/03/17 at 11:31; Status DC Atorvastatin Calcium (Lipitor) 10 mg DAILY PO Last administered on 11/09/17 08:10; Start 11/04/17 at 09:00 Aspirin (Ecotrin Ec) 81 mg ONCE ONCE PO Last administered on 11/03/17 13:42; Start 11/03/17 at 11:30; Stop 11/03/17 at 11:31; Status DC Aspirin (Ecotrin Ec) 81 mg DAILY PO Last administered on 11/09/17 08:10; Start 11/04/17 at 09:00 Senna/Docusate Sodium (Dia-Colace) 1 tab BID PO Last administered on 08:10; Start 11/04/17 at 21:00 Enoxaparin Sodium (Lovenox Inj) 40 mg Q24H SQ Last administered on 11/08/17 16:38; Start 11/04/17 at 16:00 Cyanocobalamin (Vitamin B12 Inj) 1,000 mcg ONCE ONCE IM Last administered on 11/04/17 18:18; Start 11/04/17 at 17:00; Stop 11/04/17 at 17:01; Status DC Cyanocobalamin (Vitamin B12) 1,000 mcg DAILY PO Last administered on 08:09; Start 11/05/17 at 09:00 Sodium Chloride 1,000 ml @ 42 mls/hr [id number] IV Last administered on 19:22; Start 11/06/17 at 18:00; Status Future Hold A/P Problem List: (1) Noncompliance w/medication treatment due to intermit use of medication ICD Code: Z91.14 - Patient's other noncompliance with medication regimen Status: Acute (2) Bradycardia ICD Code: R00.1 - Bradycardia, unspecified Status: Acute (3) TIA (transient ischemic attack) ICD Code: G45.9 - Transient cerebral ischemic attack, unspecified Status: Acute (4) Syncope ICD Code: R55 - Syncope and collapse Status: Acute (5) HTN (hypertension) ICD Code: I10 - Essential (primary) hypertension Status: Acute Assessment and Plan A/P TIA - Neurology following, appreciate assistance. - CT of the head moderate to severe periventricular and subcortical white matter small vessel ischemic changes, no e/o acute infarct or hemorrhage - Carotid ultrasound negative - MRA negative - MRI negative for acute ischemic event - RPR negative. B12 281, low end of normal, B12 1000mcg given. - Continue on statin therapy - ASA 81mg daily - Continue with PT/OT - PT is recommending inpatient rehabilitation. Case management consulted to assist with discharge planning. Syncopal episode ?Seizure activity - Patient with episode while awaiting to get MRI in the holding area, patient slumped over staring off into the distance not responding. - Cardiology consulted, appreciate assistance. Telemetry showing likely episodes of A. fib. previously Discussed with Dr. James who recommended against starting anticoagulation at this time secondary to patient's unsteadiness. Recommended baby aspirin daily for now and will reassess in the future. Follow-up with Dr. Moore. - Echo done and EF 55-60%, trace MR/TR - (+)orthostatics. Counseled patient on slow transitions with postural changes. LINDA hose upon standing. -initial EEG done showing no seizure activity -repeated EEG with possible seizure activity- -EEG repeated again on 11/09 with no seizure activity. -neurology f/u appreciated; no antiepileptics at this time. -started on Aricept. -f/u with neurology as outpatient. Hypertension - uncontrolled at admission with history of medication noncompliance - overall Improved - Continue on Procardia 60 mg twice a day - Continue to monitor BP and adjust treatment accordingly Dementia - Continue on Aricept - seen in consultation by ST pam arce, scored 16/30. THIS PATIENT IS CURRENTLY DEMONSTRATING DEFICITS OF ORIENTATION, MEMORY, PROBLEM SOLVING, AND VERBAL PROCESSING. - Patient is unsafe discharge as she lives alone at home. Case management assisting with discharge planning. Hypothyroidism - continue on home dose of Synthroid - TSH within normal limits DVT prophylaxis - patient is on Lovenox Discharge Planning dc to SNF today. see med list. f/u; pcp,cardiology and neurology. d/w the patient. time spent 35 min. Problem Qualifiers (1) TIA (transient ischemic attack): Qualified Codes: G45.9 - Transient cerebral ischemic attack, unspecified Ghanshyam García MD Nov 09, 2017 08:47
[2017-11-09] MEDS ORDERED: VITA10002 PO ×2 (08:51→08:59)
[2017-11-09] MEDS ORDERED: LIPI10TA PO (08:51)
[2017-11-09] MEDS ORDERED: ECASA81 PO (08:51)
--- NOTE | 2017-11-09 08:55 | HHI.DS ---
Discharge Summary Admission Date Nov 06, 2017 at 13:54 Discharge Date: Nov 09, 2017 Admitting Diagnosis TIA (1) Bradycardia ICD Code: R00.1 - Bradycardia, unspecified Diagnosis: Principal Status: Acute (2) TIA (transient ischemic attack) ICD Code: G45.9 - Transient cerebral ischemic attack, unspecified Diagnosis: Principal Status: Acute (3) Syncope ICD Code: R55 - Syncope and collapse Diagnosis: Principal Status: Acute (4) HTN (hypertension) ICD Code: I10 - Essential (primary) hypertension Diagnosis: Secondary Status: Acute Procedures none Brief History - From Admission pt stated son thought she was unsteady and called 911 per er, pt had trouble speaking when son came son came for grocery shopping no dizzness denies unsteadiness during the day,but stated she was unsteady "only when it happened" no falls no syncope denies other symptoms apart from little nausea face felt hot- for couple of weeks- no fever usually walks on her own, no walker no longer driving lives by herself, cooks for herself, does her own laundry son visits once a week CBC/BMP: 11/07/17 0750 11/07/17 0750 Significant Findings Laboratory Tests Test 11/06/17 12:45 11/07/17 07:50 Red Blood Count 5.46 MIL/MM3 (4.00-5.30) 5.51 MIL/MM3 (4.00-5.30) Hemoglobin 17.6 GM/DL (11.6-15.3) 17.5 GM/DL (11.6-15.3) Hematocrit 52.0 % (35.0-46.0) 52.1 % (35.0-46.0) Neutrophils (%) (Auto) 79.6 % (16.0-70.0) 70.4 % (16.0-70.0) Monocytes (%) (Auto) 9.1 % (0.0-8.0) 11.0 % (0.0-8.0) Neutrophils # (Auto) 8.0 TH/MM3 (1.8-7.7) Creatinine 1.07 MG/DL (0.50-1.00) Random Glucose 147 MG/DL (74-106) Albumin 3.2 GM/DL (3.4-5.0) Total Bilirubin 1.1 MG/DL (0.2-1.0) Sodium Level 133 MEQ/L (136-145) 134 MEQ/L (136-145) Potassium Level 5.2 MEQ/L (3.5-5.1) Anion Gap 3 MEQ/L (5-15) Estimat Glomerular Filtration Rate 49 ML/MIN (>89) 77 ML/MIN (>89) Troponin I LESS THAN 0.02 NG/ML Calcium Level 8.1 MG/DL (8.5-10.1) Imaging Last Impressions Head Magnetic Resonance Angiography 11/03/17 Signed Impressions: Service Date/Time: Friday, November 03, 2017 12:48 - CONCLUSION: Negative for major branch vessel occlusion or aneurysm. Julian Hawkins MD FACR Carotid Artery Ultrasound 11/03/17 Signed Impressions: Service Date/Time: Friday, November 03, 2017 08:45 - CONCLUSION: Negative examination for a hemodynamically significant carotid stenosis. . Julian Hawkins MD FACR Brain MRI 11/03/17 Signed Impressions: Service Date/Time: Friday, November 03, 2017 12:48 - CONCLUSION: Atrophy with marked periventricular white matter changes, negative for acute ischemic event. Julian Hawkins MD FACR Head CT 11/02/172010 Signed Impressions: Service Date/Time: Thursday, November 02, 2017 20:30 - CONCLUSION: 1. Moderate to severe periventricular and subcortical white matter small vessel ischemic changes bilaterally. 2. No acute infarct, acute hemorrhage, mass effect or extra-axial fluid collections. Jonathan Castrejon MD Chest X-Ray 11/02/172010 Signed Impressions: Service Date/Time: Thursday, November 02, 2017 21:09 - CONCLUSION: Bibasilar streakiness consistent with atelectasis and/or scarring. Jonathan Castrejon MD PE at Discharge GENERAL: This is a well-nourished, well-developed patient, in no apparent distress. CARDIOVASCULAR: Regular rate and regular rhythm without murmurs, gallops, or rubs. RESPIRATORY: Clear to auscultation. Breath sounds equal bilaterally. No wheezes , rales, or rhonchi. GASTROINTESTINAL: Abdomen soft, non-tender, nondistended. Normal, active bowel sounds MUSCULOSKELETAL: Extremities without clubbing, cyanosis, or edema. NEURO: awake and alert. Hospital Course patient was admitted with TIA.CT of the head moderate to severe periventricular and subcortical white matter small vessel ischemic changes, no e/o acute infarct or hemorrhage. Carotid ultrasound negative. MRI negative for acute ischemic event- RPR negative. B12 281, low end of normal. Continue on statin therapy and ASA 81mg daily. she had a syncopal episode-telemetry showed likely episodes of A. fib. previously Discussed with Dr. James who recommended against starting anticoagulation at this time secondary to patient's unsteadiness. Recommended baby aspirin daily for now and will reassess in the future. Follow-up with Dr. Moore.EEG was performed and was evaluated by neurology; recommended no antiepileptics at this time with follow-up with neurologist as outpatient. H Pt Condition on Discharge: Fair Discharge Disposition: Discharge to SNF Discharge Time: > 30 minutes Discharge Instructions DIET: Follow Instructions for: Heart Healthy Diet Speech Therapy-Diet Recommends: Regular Activities you can perform: Regular-No Restrictions Follow up Referrals: Cardiology Neurology PCP Follow-up New Medications: Aspirin DR (Aspirin DR) 81 Mg Tabdr 81 MG PO DAILY for tia for 30 Days, #30 TAB 0 Refills Atorvastatin (Lipitor) 10 Mg Tab 10 MG PO DAILY for TIA for 30 Days, #30 TAB 0 Refills Cyanocobalamin (Vitamin B-12) 1,000 Mcg Tab 1000 MCG PO DAILY for vitamin supplement for 30 Days, #3 TAB 0 Refills Continued Medications: Cholecalciferol (Vitamin D-1000) 1,000 Unit Tab 1000 UNITS PO DAILY for Nutritional Supplement, #1 BOTTLE 0 Refills Citalopram (Citalopram) 40 Mg Tab 40 MG PO DAILY for Control Depression, #30 TAB 0 Refills Donepezil (Donepezil) 5 Mg Tab 5 MG PO HS for Dementia, #30 TAB 0 Refills Levothyroxine (Levothyroxine) 88 Mcg Tab 88 MCG PO DAILY for Thyroid, #30 TAB 0 Refills Nifedipine (Nifedipine) 20 Mg Cap 60 MG PO BID for Chest Pain, #90 CAP 0 Refills Ghanshyam García MD Nov 09, 2017 08:55
[2017-11-09 12:00] VITALS: BP 128/60; PULSE 70; RESP 16; TEMP 98.3; O2SAT 95
== END 2017-11-09 16:33 | DRG 69 ==
LOC: NEPE 19:19 → UNDOADMOB 22:15 → INTOOBSV 22:15 → NEDA 22:15 → NEPFCDU 23:25 → NEDA 23:25 → NEPFCDU 11-03 01:49 → OBSVTOIN 11-06 13:54 → N05A 11-06 21:24
PROVIDERS: ADMIT Internal Medicine; ATTEND Internal Medicine
DX: G45.9 Transient cerebral ischemic attack, unspecified (principal); G93.40 Encephalopathy, unspecified; I48.91 Unspecified atrial fibrillation; R56.9 Unspecified convulsions; R47.01 Aphasia; F01.50 Vascular dementia, unspecified severity, without behavioral disturbance, psychotic disturbance, mood disturbance, and anxiety; R00.1 Bradycardia, unspecified; I10 Essential (primary) hypertension; F32.9 Major depressive disorder, single episode, unspecified; K21.9 Gastro-esophageal reflux disease without esophagitis; G62.9 Polyneuropathy, unspecified; E03.9 Hypothyroidism, unspecified; R32 Unspecified urinary incontinence; F41.9 Anxiety disorder, unspecified; Z23 Encounter for immunization; Z87.891 Personal history of nicotine dependence; Z91.14 Patient's other noncompliance with medication regimen
CPT/HCPCS: 70450; 70544; 70551; 71010; 80048; 80053; 80061; 80307; 81001; 82550; 82552; 82607; 82746; 82948; 83036; 83605; 83735; 84100; 84439; 84443; 84484; 85025; 85610; 85730; 86592; 90686; 90732; 93005; 93306; 93880; 94150; 95819; 99285; G0378; G8987-GO; G8987-GP; G8988-GO; G8988-GP; G8996-GN; G8997-GN; G8998-GN; J1650; J3420; J7030; P9612; Q2038